=== PATIENT | female | born 1970 | race African-American/Black ===

== ENCOUNTER 2017-03-03 16:47 | Inpatient (IN) | payer BC ==
[2017-03-03 17:49] LABS: #Eosinphils 0.2 thou/uL (0.0-0.7); #Lymphocytes 1.9 thou/uL (1.20-3.40); #Monocytes 0.5 thou/uL (0.11-0.59); #Neutrophils 7.3 thou/uL (1.40-6.50); %Basophils 0.4 % (0.0-1.0); %Eosinophils 1.9 % (0.0-10.0); %Lymphocytes 19.1 % (21.0-51.0); %Monocytes 5.1 % (0.0-10.0); Hematocrit 29.5 % (36.0-47.0); Mean Platelet Volume 8.1 fL (7.4-10.4); Red Blood Cell (RBC) Count 4.32 mill/uL (4.20-5.40); White Blood Cell (WBC) Count 9.9 thou/uL (4.8-10.8)
[2017-03-03 18:03] LABS: Anisocytosis SLIGHT = 6-15 cells (100X) (0-5/hpf); Hypochromia SLIGHT = 6-15 cells (100X) (0-5/hpf); Microcytosis MODERATE=15-30 cells (100X) (0-5/hpf); Ovalocytes SLIGHT = 2-5 cells (100X) (0-1/hpf); Polychromasia SLIGHT = 2-3 cells (100X) (0-2/hpf); Target Cells SLIGHT = 2-5 cells (100X) (0-1/hpf)
[2017-03-03 18:11] LABS: ALT (SGPT) 8 U/L (8-55); AST (SGOT) 13 U/L (5-34); Alkaline Phosphatase 64 U/L (40-150); Anion Gap 14 mmol/L (10-20); BUN (Urea Nitrogen) 6 mg/dL (7.0-18.7); Bilirubin, Total 0.3 mg/dL (0.2-1.2); Calc. Creatinine Clearance 0 mL/min (70-130); Calcium 9.1 mg/dL (7.8-10.44); Carbon Dioxide 23 mmol/L (22-29); Chloride 105 mmol/L (98-107); Estimated GFR-MDRD 90; Globulin 4.5 g/dL (2.4-3.5)
[2017-03-03] MEDS ORDERED: methylPREDNISolone Sod Succ/PF 125 MG/2 ML VIAL ONE (19:25)
[2017-03-03] MEDS ORDERED: Water For Inject, Bacteriostat 30 ML ONE (19:28)
[2017-03-03] MEDS ORDERED: diphenhydrAMINE HCl 50 MG/ML 1 ML VIAL ONE (19:29)
--- NOTE | 2017-03-03 19:42 | CT ---
CT HEAD NONCONTRAST 03/03/17 HISTORY: Headache. COMPARISON: 10/05/16 FINDINGS: There is no evidence of acute intracranial hemorrhage or infarct. The ventricles appear normal in si ze, shape and position. There is no mass effect or shift of midline structures. Visualized paranasal sinuses remain well aerated. IMPRESSION: No acute intracranial abnormalities are demonstrated on noncontrast CT head. POS: [facility]
[2017-03-03] MEDS ORDERED: Acetaminophen 325 MG TAB PO PRN (20:55)
[2017-03-03] MEDS ORDERED: Ondansetron HCl/PF 4 MG/2 ML Vial IVP PRN (20:55)
[2017-03-03] MEDS ORDERED: HYDROcodone/Acetaminophen 5/325 mg Tablet PO PRN ×2 (20:55)
[2017-03-03] MEDS ORDERED: Ondansetron ODT 4 MG TAB SL PRN (20:55)
[2017-03-03] MEDS ORDERED: Ondansetron ODT 4 MG TAB PO PRN (21:11)
[2017-03-03] MEDS ORDERED: Ketorolac Tromethamine 30 MG/ML VIAL IVP SCH (21:15)
[2017-03-03] MEDS ORDERED: PROVENTIL INHALER 6.7 G (200 INHALATIONS) INH PRN (21:20)
[2017-03-03 21:41] VITALS: BMI 43.2
[2017-03-03 22:33] LABS: IRF 0.319 Ratio (0.163-0.362); Reticulocyte Count 1.3 % (0.5-1.5)
[2017-03-03 22:56] LABS: Anisocytosis SLIGHT = 6-15 cells (100X) (0-5/hpf); Hypochromia SLIGHT = 6-15 cells (100X) (0-5/hpf); Mean Platelet Volume 7.8 fL (7.4-10.4); Microcytosis MODERATE=15-30 cells (100X) (0-5/hpf); Neutrophil 89 % (42-75); Red Blood Cell (RBC) Count 4.09 mill/uL (4.20-5.40); White Blood Cell (WBC) Count 10.2 thou/uL (4.8-10.8)
[2017-03-03 23:02] LABS: Protein, Total 7.8 g/dL (6.0-8.3)
--- NOTE | 2017-03-04 00:57 | HP-2 ---
DATE OF ADMISSION: 03/03/2017 ADMITTING ATTENDING: David Amador MD RESIDENT: David Odom M.D. PRIMARY CARE PHYSICIAN: [facility]. CODE STATUS: FULL CODE. HISTORY OF PRESENT ILLNESS: The patient is a pleasant 46-year-old female with past medical history of hypertension, asthma, gastroparesis, anxiety, depression , and chronic anemia, who presents for evaluation of a severe headache that woke her up from sleep at approximately 04:30 this morning. The patient endorses taking naproxen at 10 this AM without any significant benefit. The patient did have a history of 1 episode of this approximately 2 years ago requiring hospitalization for 1 week. Patient states that she was diagnosed with a migraine and eventually sent home on the triptan medication. The patient describes headache as throbbing in nature and behind the eyes and in the forehead bilaterally with radiation around to the back of her head and into the neck. Positive photo and phonophobia as well as eye watering. The patient denies any rhinorrhea associated with this. The patient endorses blurry vision as well. The patient denies any history of a diagnosis of polymyalgia rheumatica. The patient denies any issues with gait or coordination imbalances. In the ER, the patient received 25 mg of IV Benadryl, 10 mg p.o. Reglan, and 125 mg of IV Solu-Medrol with 1 liter of normal saline bolus per headache protocol. PAST MEDICAL HISTORY: 1. Hypertension. 2. Hyperlipidemia. 3. Obesity. 4. Anemia. 5. Gastroparesis. 6. Anxiety depression. 7. Asthma. PAST SURGICAL HISTORY: Uterine ablation. FAMILY HISTORY: 1. Hypertension. 2. Heart disease. ALLERGIES: No known drug allergies. MEDICATIONS: 1. Albuterol inhaler. 2. 12.5 mg of HCTZ p.o daily. 3. 40 mg of omeprazole p.o. daily. 4. Cymbalta, unknown dosage. 5. Trazodone 150 mg p.o. at bedtime. 6. Gabapentin, unknown dosage. PHYSICAL EXAMINATION: VITAL SIGNS: T-max 98.8 degrees Fahrenheit, respiratory rate 18, heart rate 81 , blood pressure 131/64, O2 sat 96% on room air, weight current 117.93 kilograms. GENERAL: Alert and oriented x3. EYES: Unable to achieve adequate exam secondary to the patient with photophobia , but upon the previous examination, pupils appeared normal in dilation bilaterally and positive photophobia was noticed. No injection was identified. ENT: Mucous membranes moist. Oropharynx clear. CARDIOVASCULAR: Regular rate and rhythm, no murmurs or gallops, 2+ pedal pulses bilaterally LUNGS: Clear to auscultation bilaterally. RESPIRATORY: No rubs, rhonchi or wheezes. ABDOMEN: Nontender to palpation. Bowel sounds x4. No masses or distention. EXTREMITIES: No clubbing, no cyanosis, no edema. SKIN: No rash, no lesion. NEUROLOGIC: Cranial nerves II through XII intact bilaterally. No focal deficits. The patient is tender to palpation over the cephalad aspect of the temporal arteries bilaterally with some mild fullness noted in these areas. PSYCHIATRIC: Appropriate mood and affect. LABORATORY DATA: White blood cells 9.9, hemoglobin 9.4 with MCV of 68.3, hematocrit 29.5, platelets 647. CMP: Sodium 139, potassium 3.4, chloride 105, bicarbonate 23, BUN 6, creatinine 0.83, glucose 99, albumin 3.5, total protein 8.0, total bilirubin 0.3 , calcium 9.1, AST 13, ALT 8, alkaline phosphatase 64. ESR [address] head showing no acute intracranial process. ASSESSMENT AND PLAN: A 46-year-old female with: 1. Intractable migraine, rule out temporal arteritis. -- We will go ahead and admit to medical floor for further evaluation. Consult Neurology in the morning. Patient already received 125 mg of Solu-Medrol, which we will continue for treatment of suspected temporal arteritis. -- We will continue on with migraine protocol. We will go ahead and give IV Toradol upon arrival to the floor with next step being magnesium sulfate. This patient has already gotten Solu-Medrol. If this fails, we will likely attempt naproxen-sumatriptan combination, as patient states that this helped her during her previous episode of migraine approximately 2 years ago. 2. Nwwi-ol-ddiyixfr suspicion of GCA secondary to it being bilateral in nature with no acute vision loss and a chronic anemia. However, cannot rule out at this time. -- We will go ahead and work up for lupus as well as autoimmune panel including JOSI, rheumatoid factor, lupus anticoagulant, C3-C4 and anticardiolipin antibodies. -- We will go ahead and place order for color flow Dopplers for further evaluation of temporal arteritis, as this has been shown to be adjunct modality to aid in diagnosis. We will leave decision for possible biopsy up to Neurology after they are consulted and had a chance to evaluate the patient. 3. Macrocytic anemia. -- We will check iron studies as well as a retic count, peripheral smear for further evaluation. We will start iron pending studies. Differential diagnosis is iron deficiency versus anemia of chronic disease versus sickle cell or thalassemia. 4. Hypertension. -- We will continue on with home meds, appears to be well controlled on current regimen. 5. Hyperlipidemia. -- The patient not on any statin medication. We go ahead and check a fasting lipid panel and start statin if indicated. 6. Asthma. -- The patient is satting well on room air with lungs clear to auscultation bilaterally. We will continue on with Albuterol inhaler. 7. Anxiety, depression. -- We will continue on with home Cymbalta and trazodone. 8. Gastroparesis. -- Patient on no home medications if this becomes an issue, we will start p.o. Reglan for this. 9. Prophylaxis. -- Patient is ambulatory, we will place on sequential compression devices as she is at lower risk for thromboembolic event. -- Patient likely with some heart disease in the setting of hypertension, hyperlipidemia. We will place on heart healthy diet. -- Patient tolerating p.o. We will have patient's saline locked and start IV fluids if indicated at that time. Evaluation assessment and plan as discussed with Dr. David Amador, who agrees. Symptomatic medications will be provided. Agree with above. Seen and and examined and seay portions of the H&P repeated by myself. See my dictated H&P for any changes. BRIDGETD
[2017-03-04] MEDS ORDERED: HYDROcodone/Acetaminophen 5/325 mg Tablet PO SCH (05:10)
[2017-03-04 06:19] LABS: #Lymphocytes 0.8 thou/uL (1.20-3.40); #Monocytes 0.1 thou/uL (0.11-0.59); #Neutrophils 7.7 thou/uL (1.40-6.50); %Basophils 0.1 % (0.0-1.0); %Eosinophils 0.1 % (0.0-10.0); %Lymphocytes 9.4 % (21.0-51.0); Hematocrit 29.5 % (36.0-47.0); Mean Platelet Volume 7.8 fL (7.4-10.4); Red Blood Cell (RBC) Count 4.27 mill/uL (4.20-5.40); White Blood Cell (WBC) Count 8.6 thou/uL (4.8-10.8)
[2017-03-04 06:22] LABS: Anion Gap 13 mmol/L (10-20); BUN (Urea Nitrogen) 7 mg/dL (7.0-18.7); Calc. Creatinine Clearance 166 mL/min (70-130); Carbon Dioxide 22 mmol/L (22-29); Chloride 105 mmol/L (98-107); Estimated GFR-MDRD Greater than 90
[2017-03-04] MEDS ORDERED: Docusate 100 MG CAP PO PRN (06:48)
--- NOTE | 2017-03-04 06:53 | HP ---
DATE OF ADMISSION: 03/03/2017 CHIEF COMPLAINT: Headache. HISTORY OF PRESENT ILLNESS: This is a 46-year-old female with a past history of hypertension, depression, anxiety, and asthma who presents with 1 day of headache. It is described as bitemporal radiating across her forehead, throbbing with associated phonophobia, photophobia, nausea, and started out with what was described as prism of light going across her vision, which still she says persists and just progressively worsened to 10/10 pain. She is in the ED, where she was initially given medications with no improvement and because of concerning labs, she had a scan done and admitted to our service. She denies jaw claudication, chest pain, shortness of breath, fever, chills, or night sweats. REVIEW OF SYSTEMS: This is negative except as per HPI. Please see the resident 's note for full review of systems. PAST MEDICAL HISTORY: Positive for hypertension, obesity, asthma, history of headache, depression and anxiety. PAST SURGICAL HISTORY: Positive for endometrial ablation, and tubal ligation. FAMILY HISTORY: Positive for hypertension. ALLERGIES: None. MEDICATIONS: Significant for albuterol and hydrochlorothiazide. PHYSICAL EXAMINATION: VITAL SIGNS: Temperature 98.2, pulse 62, respirations 18, blood pressure 132/85 , O2 sat 100% on room air. CONSTITUTIONAL: The patient is in no acute distress, was in darkened room with glass over her eyes when quietly in bed. EYES: Pupils equal, round, reactive to light and accommodation. HEENT: Pinna normal, nares patent. Moist mucous membranes. Mildly tender of bilateral temporal areas. NECK: Trachea midline and mobile. CARDIOVASCULAR: Regular rate and rhythm without murmur, gallops, or rubs. Pulses equal on both upper extremities. RESPIRATORY: Clear to auscultation bilaterally without increased work of breathing. No wheezes noted. GASTROINTESTINAL: Bowel sounds positive. Nontender to palpation. GENITOURINARY: Deferred. MUSCULOSKELETAL: No congenital abnormalities or contractures, or malformations. SKIN: Without lesion or wound. NEUROLOGIC: Cranial nerves II through XII is intact and symmetric. Motor is 5/ 5 throughout. Sensation is intact to light touch throughout. PSYCHIATRIC: Alert and oriented x3. Mood and affect are appropriate for current medical issues. LABORATORY DATA: White count 9.9, hemoglobin 9.4, MCV 68.3, platelet count 647. ESR 99. CRP 4.37. Sodium 139, potassium 3.4, chloride 105, bicarbonate 23, BUN 6, creatinine 0.83, reassuring LFTs. Globulin 4.5. CT of the head demonstrates no acute intracranial abnormalities. ASSESSMENT AND PLAN: A 46-year-old female with: 1. Headache. By history, this sounds like a migraine; however, with her elevated ESR and complaint of temporal pain, we will consider diagnosis of temporal arteritis. Plan for consultation with Neurology in the morning. We will go ahead and send a limited autoimmune workup. Medication donald, we will give Toradol x1, [place] p.r.n., give a headache cocktail with Benadryl, methylprednisolone and Phenergan, and monitor for response. 2. Hypertension. We will continue home medication and monitor, assess cardiovascular risk later on. 3. Obesity. We will send an A1c and lipid panel. 4. Anxiety and depression. We will continue home duloxetine. 5. Anemia is normocytic, could be associated with temporal arteritis, but with MCV as well, we will send a hemoglobin electrophoresis. 6. Hypokalemia. We will replete and recheck in the morning. 7. Thrombocytosis, presumably reactive related to her anemia; however, with ESR aside, this could be secondary to an underlying cause, which we will investigate. 8. Asthma. We will continue MDI p.r.n. 9. Deep venous thrombosis prophylaxis, SCDs. 10. Gastrointestinal prophylaxis with diet. MTDD
[2017-03-04] MEDS: Ferrous Sulfate 325 MG TAB PO SCH ×2 (08:08→17:08)
[2017-03-04] MEDS: Hydrochlorothiazide 25 MG TAB PO SCH (08:11)
--- NOTE | 2017-03-04 09:51 | ULT ---
FOCUSED ARTERIAL DOPPLER ULTRASOUND F THE TEMPORAL REGIONS: DATE: 03/04/17. HISTORY: Possible temporal arteritis. TECHNIQUE: Sonographic assessment in bilateral temporal regions obtained with color flow and spectral analysis. FINDINGS: There are arterial waveforms documented within bilateral temporal regions which may signify patent t emporal arteries. However, they cannot be discretely visualized on suarez scale imaging and thus eval uation for wall thickening cannot be performed. In the expected location of the right temporal earline ry there is an arterial waveform documented with a peak systolic velocity of 25 cm/s and a resistive index of 0.78. In the expected location of the left temporal artery there is a peak systolic veloc ity of 18.7 cm/s and resistive index is 0.78. IMPRESSION: Arterial waveforms documented in the expected region of bilateral temporal arteries. The arteries c annot be discretely visualized. POS: [facility]
[2017-03-04 11:10] LABS: Bilirubin Negative (Negative); Blood, Urine Large (Negative); Glucose, Urine (Dipstick) Negative (Negative); Ketone, Urine Negative (Negative); Nitrite Negative (Negative); Protein, Urine (Dipstick) Negative (Neg-Trace); Urobilinogen 0.2 mg/dL (0.2-1.0)
[2017-03-04 11:15] LABS: Bacteria/HPF 1+ HPF (None Seen); Hyaline Casts/LPF 0-3 HYALINE CAST LPF (0-3 Hyaline); RBC/HPF 0-3 HPF (0-3); WBC/HPF 0-3 HPF (0-3)
[2017-03-04 11:16] LABS: Amphetamine Not Detected (NotDetected); Methadone Not Detected (NotDetected); Methamphetamine Not Detected (NotDetected)
[2017-03-04 12:20] LABS: DRVVT Ratio 0.8 Ratio (1.2 or Less); DRVVT Screen 28.7 SEC (20-50)
[2017-03-04] MEDS ORDERED: SUMAtriptan Succinate 50 MG TAB PO SCH (13:30)
[2017-03-04] MEDS ORDERED: Naproxen 500 MG TAB PO SCH (13:30)
--- NOTE | 2017-03-04 13:57 | PDOC.FM ---
- Subjective Subjective: 46 yo F hospital day 2 admitted for intactable headache and concern for temporal arteritis. She states her headache is the same in pain level as it was yesterday. Also reports one headache similar to this approximately 2 years ago, but this episode, while bad, is not as severe as the last. She reports that the previous headache was treated with sumatriptan with relief of symptoms. She describes the pain location as bitemporal, frontal and retroorbital. She complains of mild decrease in vision and has photo and phonophobia. Slightly nauseated, without emesis abdominal pain, diarrhea, constipation, fever, chills. - Objective Vital Signs & Weight: Vital Signs (12 hours) Temp Pulse Resp BP Pulse Ox 03/04/17 11:03 97.6 F 54 L 18 128/78 96 03/04/17 08:00 97.5 F L 51 L 18 120/71 97 03/04/17 04:00 97.5 F L 59 L 20 110/74 96 Weight Admit Weight 117.934 kg Weight 117.934 kg I&O: 03/03/17 03/04/17 03/05/17 06:59 06:59 06:59 Intake Total 500 Output Total 300 Balance 200 Result Diagrams: 03/04/17 05:14 03/04/17 05:14 Phys Exam - Physical Examination moderatley distressed, glasses over eyes HEENT: PERRLA, sclera anicteric ttp over bl temples Neck: no nodes, no JVD Respiratory: no wheezing, no rales, no rhonchi, clear to auscultation bilateral Cardiovascular: RRR, no significant murmur, no rub, gallop Gastrointestinal: soft, non-tender, no distention, positive bowel sounds Musculoskeletal: no edema, pulses present Neurological: non-focal cn II-XII intact, strength 5/5 all extremities Dx/Plan (1) Intractable headache Code(s): R51 - HEADACHE Status: Acute (2) Anemia, iron deficiency Code(s): D50.9 - IRON DEFICIENCY ANEMIA, UNSPECIFIED Status: Acute (3) Elevated C-reactive protein (CRP) Code(s): R79.82 - ELEVATED C-REACTIVE PROTEIN (CRP) Status: Acute (4) Hypertension Code(s): I10 - ESSENTIAL (PRIMARY) HYPERTENSION Status: Acute - Plan Plan: ttp bl temporal arteries and elevated esr and crp sumatriptan and naprosyn given for headache, monitor pain neurology consulted appreciate recs iron deficiency anemia, harry, ttg ab and total immunoglobulin pending iron 325 bid WM vit C 500mg BID, colace trini 100bid h/o of gastritis/esophagitis fobt ordered thrombocytosis, chronic possibly 2/2 anemia, will trend doppler study of bilateral temporal arteries was normal
[2017-03-04] MEDS ORDERED: Calcium Carbonate 500 MG ChewTAB PO PRN (14:32)
[2017-03-04] MEDS ORDERED: Promethazine HCl 25 MG/ML VIAL SLOW IVP PRN (19:50)
[2017-03-04] MEDS ORDERED: predniSONE 20 MG TAB PO SCH (20:00)
[2017-03-04] MEDS: Ascorbic Acid 500 mg Chewable Tablet PO SCH (20:08)
[2017-03-04] MEDS: traZODone HCl 150 MG TAB PO SCH (20:08)
[2017-03-04] MEDS: Docusate 100 MG CAP PO SCH (20:08)
--- NOTE | 2017-03-04 21:24 | ADD-PRG ---
DATE OF SERVICE: 03/04/2017 ADDENDUM Please add it as an addendum to the note of Dr. David Maria. Ms. Morrison is a 46-year-old black female patient admitted with bilateral throbbing headache seeming ly consistent with her usual migraine which however, has not been a problem for about 2 years. She also was noted to have an extremely high sedimentation rate and CRP with some tenderness over both t emporal arteries suggesting temporal arteritis. She has been admitted for pain control as well as N eurology consultation. She is also noted to have a microcytic anemia with low ferritin consistent w ith iron deficiency. She had ablation for abnormal uterine bleeding in the past and has had no vagi nal bleeding since November of this year. She had previously had an EGD and colonoscopy approximately 1 year ago with evidently no significant findings other than erosive esophagitis. She does admit to having postprandial abdominal discomfort as well as 1 week ago, vomiting up coffee-ground emesis. W e will therefore consult GI or at least touch base to them to see if they want to proceed with EGD. In the interim, we will begin to replenish her iron. In the past, she states she has been intolera nt of p.o. iron and that it caused throat and chest pain. We will reattempt this it if unsuccessful . She will be a candidate for iron infusion. In the event, we need to get her hemoglobin back to 1 2-13 and her ferritin up to at least 40-50.
--- NOTE | 2017-03-05 01:35 | CON ---
DATE OF CONSULTATION: 03/04/2017 CONSULTING PHYSICIAN: Hospitalist Service. IMPRESSION: Symptoms are most suggestive of migraine. Given her elevated sed rate, further evaluat ion for temporal arteritis would be a consideration although her age is atypical. PLAN: 1. Recheck a sed rate and CRP. 2. Prednisone 60 mg orally now. 3. Reglan and morphine IV for pain. 4. Consider need for referral to ENT for temporal artery biopsy. HISTORY OF PRESENT ILLNESS: Ms. Morrison is a 46-year-old black female with a past history of asthma and episodic headaches. Yesterday, she developed a bifrontal headache that was both pressure and t hrobbing in quality. There is no significant cranial tenderness associated with it. She also compl ains of blurred vision, nausea, light sensitivity, sound sensitivity and dizziness. She was given a migraine protocol, but did not respond. She was admitted for further evaluation. She had a CT sca n of the brain, which was normal. Her white blood cell count was 9.0, hemoglobin of 9. Her sed rat e was 99. PAST MEDICAL HISTORY: As listed above. ALLERGIES: None reported. SOCIAL HISTORY: Unremarkable. FAMILY HISTORY: Unremarkable. REVIEW OF SYSTEMS: No lateralized weakness or numbness. No confusion or seizures. No fevers, chil ls or sweats. PHYSICAL EXAMINATION: GENERAL: She is an obese middle-aged woman, lying in bed with sunglasses on and lights dimmed. HEENT: No significant cranial tenderness. NEUROLOGIC: She is alert and appropriate. Her speech is fluent and clear. Her exam is nonfocal. No abnormal movements were noted and gait was not tested. SUMMARY: This middle-aged woman with complaints of a headache more consistent with a migraine. We can start some prednisone and try a different tack on pain relief. Hopefully, this will break the c ycle and she can be discharged.
[2017-03-05 05:01] LABS: #Lymphocytes 1.1 thou/uL (1.20-3.40); #Monocytes 0.1 thou/uL (0.11-0.59); #Neutrophils 13.2 thou/uL (1.40-6.50); %Basophils 0.1 % (0.0-1.0); %Lymphocytes 7.4 % (21.0-51.0); Hematocrit 29.2 % (36.0-47.0); Mean Platelet Volume 8.1 fL (7.4-10.4); Red Blood Cell (RBC) Count 4.27 mill/uL (4.20-5.40); White Blood Cell (WBC) Count 14.4 thou/uL (4.8-10.8)
[2017-03-05 05:17] LABS: Anion Gap 14 mmol/L (10-20); BUN (Urea Nitrogen) 9 mg/dL (7.0-18.7); Calc. Creatinine Clearance 164 mL/min (70-130); Calcium 9.4 mg/dL (7.8-10.44); Carbon Dioxide 19 mmol/L (22-29); Chloride 105 mmol/L (98-107); Estimated GFR-MDRD Greater than 90
[2017-03-05] MEDS: Ferrous Sulfate 325 MG TAB PO SCH ×2 (09:24→17:07)
[2017-03-05] MEDS: Ibuprofen 800 MG TAB PO PRN (09:24)
[2017-03-05] MEDS: Ascorbic Acid 500 mg Chewable Tablet PO SCH ×2 (09:24→22:06)
[2017-03-05] MEDS: Docusate 100 MG CAP PO SCH ×2 (09:24→22:06)
[2017-03-05] MEDS: Hydrochlorothiazide 25 MG TAB PO SCH (09:24)
[2017-03-05] MEDS ORDERED: predniSONE 20 MG TAB PO SCH (14:00)
--- NOTE | 2017-03-05 14:03 | PDOC.FM ---
- Subjective Subjective: 46 yo F hospital day 2. Pt reports her pain is mildly improved with the sumatriptan and aleve given yesterday. She continues to have her sunglasses on, but has her eyes opened today. She reports decreased photophobia, phonophobia. She is persistently ttp bitemporally. She also reports she is having pain from the iron medication she is getting. She was seen by neurology yesterday and they switched migraine pain control to phenergan and morphine given together q4h. Additionally, she received 60mg prednisone. Denies NVD. Reports her last BM was approximately 4 days ago. - Objective Vital Signs & Weight: Vital Signs (12 hours) Temp Pulse Resp BP Pulse Ox 03/05/17 08:00 97.9 F 64 22 H 126/76 96 03/05/17 04:00 97.9 F 68 18 134/83 95 Weight Admit Weight 117.934 kg Weight 117.934 kg I&O: 03/04/17 03/05/17 03/06/17 06:59 06:59 06:59 Intake Total 500 420 720 Output Total 300 2 Balance 200 420 718 Result Diagrams: 03/05/17 04:31 03/05/17 04:31 Phys Exam - Physical Examination Constitutional: NAD HEENT: PERRLA, moist MMs, sclera anicteric ttp bilateral temples Respiratory: no wheezing, no rales, no rhonchi, clear to auscultation bilateral Cardiovascular: RRR, no significant murmur, no rub Gastrointestinal: soft, non-tender, no distention, positive bowel sounds Musculoskeletal: no edema Neurological: non-focal, normal sensation, moves all 4 limbs CN II-XII intact Dx/Plan (1) Intractable headache Code(s): R51 - HEADACHE Status: Acute (2) Anemia, iron deficiency Code(s): D50.9 - IRON DEFICIENCY ANEMIA, UNSPECIFIED Status: Acute (3) Elevated C-reactive protein (CRP) Code(s): R79.82 - ELEVATED C-REACTIVE PROTEIN (CRP) Status: Acute (4) Hypertension Code(s): I10 - ESSENTIAL (PRIMARY) HYPERTENSION Status: Acute - Plan Plan: pt had a drop in the CRP, but the ESR had a slight increase we will continue prednisone 60mg QD X 5 days for her iron deficiency anemia the pt reported h/o coffee ground emesis recently , GI has been consulted and we are awaiting recs ttg, and Hgb electrophoresis are still pending thrombocytosis 2/2 iron deficiency anemia vs bleed vs autonomous thrombocytosis : we will continue iron supplementation and await GI recs miralax for constipation fobt pending Per Nuerology recs, phenergan and morphine for pain control continue to monitor clinically
--- NOTE | 2017-03-05 14:09 | ADD-PRG ---
This is an addendum to the note of Dr. David Maria. Ms. Morrison is still having bilateral headache, although it has improved slightly. It did not impro ve to the degree that I think temporal arteritis would give her high dosages of prednisone. We are still in the midst of working up her anemia and will make a decision regarding EGD either as an inpa tient or outpatient. We should continue her on high dose prednisone until we can arrange temporal a rtery biopsy with ENT.
[2017-03-05] MEDS: traZODone HCl 150 MG TAB PO SCH (22:06)
[2017-03-06 05:58] LABS: Anion Gap 11 mmol/L (10-20); BUN (Urea Nitrogen) 12 mg/dL (7.0-18.7); Calc. Creatinine Clearance 164 mL/min (70-130); Carbon Dioxide 27 mmol/L (22-29); Chloride 103 mmol/L (98-107); Estimated GFR-MDRD Greater than 90
[2017-03-06 06:01] LABS: Band 2 % (5-11); Hematocrit 27.9 % (36.0-47.0); Neutrophil 93 % (42-75); Red Blood Cell (RBC) Count 4.05 mill/uL (4.20-5.40)
[2017-03-06] MEDS: Docusate 100 MG CAP PO SCH ×2 (07:48→20:37)
[2017-03-06] MEDS: Ascorbic Acid 500 mg Chewable Tablet PO SCH ×2 (07:48→20:37)
[2017-03-06] MEDS: Hydrochlorothiazide 25 MG TAB PO SCH (07:49)
[2017-03-06] MEDS: Ferrous Sulfate 325 MG TAB PO SCH (07:49)
[2017-03-06] MEDS: predniSONE 20 MG TAB PO SCH (07:50)
--- NOTE | 2017-03-06 10:01 | PDOC.FM ---
- Subjective Subjective: pt had no acute events overnight. She continues to have pain, but states it is slightly improved. She reports she has yet to have a BM, but does have a history of gastroparesis. Pt also reports inability to take oral iron supplementation 2/2 side effects. Denies excessive tearing. Reports some persistent blurry vision. Photophobia and phonophobia have improved along with bitemporal tenderness to palpation. - Objective Vital Signs & Weight: Vital Signs (12 hours) Temp Pulse Resp BP Pulse Ox 03/06/17 08:00 98.2 F 61 18 116/73 95 Weight Admit Weight 117.934 kg Weight 117.934 kg I&O: 03/05/17 03/06/17 03/07/17 06:59 06:59 06:59 Intake Total 420 1300 Output Total 2 Balance 420 1298 Result Diagrams: 03/06/17 04:51 03/06/17 04:51 <David Maria - Last Filed: 03/06/17 19:01> - Objective Vital Signs & Weight: Weight Admit Weight 260 lb Weight 260 lb I&O: 03/06/17 03/07/17 03/08/17 06:59 06:59 06:59 Intake Total 1300 240 Output Total 2 Balance 1298 240 Result Diagrams: 03/07/17 04:10 03/07/17 04:10 <Lencho Ye - Last Filed: 03/07/17 21:56> Phys Exam - Physical Examination Constitutional: NAD HEENT: PERRLA, moist MMs, sclera anicteric, oral pharynx no lesions Respiratory: no wheezing, no rales, no rhonchi, clear to auscultation bilateral Cardiovascular: RRR, no significant murmur, no rub Gastrointestinal: soft, non-tender, no distention, positive bowel sounds Musculoskeletal: no edema, pulses present Neurological: non-focal, normal sensation cn II-XII intact <David Maria - Last Filed: 03/06/17 19:01> Dx/Plan (1) Intractable headache Code(s): R51 - HEADACHE Status: Acute (2) Anemia, iron deficiency Code(s): D50.9 - IRON DEFICIENCY ANEMIA, UNSPECIFIED Status: Acute (3) Elevated C-reactive protein (CRP) Code(s): R79.82 - ELEVATED C-REACTIVE PROTEIN (CRP) Status: Acute (4) Hypertension Code(s): I10 - ESSENTIAL (PRIMARY) HYPERTENSION Status: Acute - Plan Plan: we will continue prednisone 60 qd for concerns of temporal arteritis GI has recommended no endoscopic evaluation at this time for anemia will transfuse iron 2/2 severe deficiency anemia transition IV pain medications for headache to PO medications sumatriptan and naprosyn clinically pt continues to improve and will likely be stable for dc tomorrow, pending continued improvement of her symptoms recheck CBC consider BB for migraine prophylaxis rf, harry were negative ttg pending, Hgb electrophoresis pending persistent thrombocytosis likely 2/2 severe iron deficiency anemia <David Maria - Last Filed: 03/06/17 19:01> Attending Addendum - Attending Addendum I personally evaluated the patient and discussed the management with [Candace ] I agree with the History, Examination, Assessment and Plan documented above with any addition or exceptions noted below. pt with iron deficient anemia. choudhury with high sed rate. choudhury is getting better <Lencho Ye - Last Filed: 03/07/17 21:56>
--- NOTE | 2017-03-06 14:14 | PRG ---
DATE OF SERVICE: 03/06/2017 SUBJECTIVE: Ms. Morrison states that she is about the same in terms of headache. She has had no vom iting. Nurses note no bleeding. OBJECTIVE: VITAL SIGNS: Temperature is 98.2, pulse 61, blood pressure 116/73. GENERAL: She is wearing dark sunglasses. ABDOMEN: Nontender, a little overweight. LABORATORY STUDIES: White count 22, hemoglobin 9, platelet count 589. Basic metabolic profile norm al. ASSESSMENT: 1. With regard to her iron deficiency anemia as noted on yesterday's consultation, she had a workup last year. She shows no overt bleeding. Hemoglobin electrophoresis is pending. Tissue transgluta minase is pending. 2. With regard to leukocytosis, likely related to steroids that she is on for possible temporal art eritis. RECOMMENDATIONS: At this time, no plans to repeat endoscopy. We will follow from a distance.
[2017-03-06] MEDS ORDERED: Naproxen 500 MG TAB PO PRN (15:00)
--- NOTE | 2017-03-06 15:06 | CON ---
REASON FOR CONSULTATION: Chronic microcytic anemia. HISTORY OF PRESENT ILLNESS: Ms. Morrison is a 46-year-old female who was admitted to the hospital on 03/03/2017 for headache associated with phonophobia, photophobia, nausea, and visual changes. She was admitted to the hospital for further evaluation, has had a negative CAT scan of the brain, has b ronan seen by Neurology, who has recommended consideration of a temporal artery biopsy. She has alrea dy had that to rule out temporal arteritis. She has a hemoglobin of 9 and MCV of 68. I was asked t o see her with regards to this. On reviewing the patient's records, her anemia has been longstandin g. She denies any overt melena. She said sometimes in the past, she would vomit with her reflux. She occasionally has coffee-ground emesis. She does not remember exactly when that occurred. She d enies any melena. Her hemoglobin has remained essentially the same since admission today being 9.0 with MCV of 68. On reviewing her old records, she has had an extensive workup for iron deficiency a nemia last year with Dr. Lencho Pindea. At that time, she underwent upper and lower endoscopy at this hospital. The old records here indicate that she had a normal colonoscopy except for small internal hemorrhoids and had erosive esophagitis at the GE junction and a 5 cm hiatal hernia on EGD, this wa s performed in October of last year. She was placed on b.i.d. omeprazole on her last followup in the [facility] last fall. She was having no problems. Presently, she reports she does have some reflux at ti mes but does pretty well with the omeprazole. She also has a known history of delayed gastric empty ing as per gastric emptying scan in 09/2016. As far as her anemia goes, it dates back in the medical records as far as 1993; I have never seen a hemoglobin of more than 11 in this patient. Her MCV has been low as well throughout the entire time . She has had documented low irons in the past. While she is here, I will check a hemoglobin elect rophoresis to evaluate for possible thalassemia, which is not unreasonable. PAST MEDICAL HISTORY: 1. Chronic microcytic anemia with previous endoscopic workup just last year as above. 2. History of asthma and episodic headaches. 3. History of reflux esophagitis by gastric emptying on a gastroparesis study last year. 4. Hypertension, dyslipidemia, obesity. 5. Depression and anxiety. PAST SURGICAL HISTORY: Uterine ablation for menorrhagia, endoscopy as noted above, tubal ligation. SOCIAL HISTORY: The patient denies smoking. She does not drink either. ALLERGIES: None. MEDICATIONS: At home, Risperdal, omeprazole, Cymbalta, trazodone, Ventolin inhaler, Claritin, ibupr ofen 600 mg t.i.d. p.r.n., hydrochlorothiazide. Active medications, Proventil, vitamin C, Tums, Col mark, iron, hydrochlorothiazide, Motrin, morphine, Zofran, Protonix 40 mg p.o. daily, prednisone 60 m g daily, Phenergan p.r.n., and Desyrel. LABORATORY STUDIES: White count 14, it was 10 on admission; hemoglobin 9, it was 9.2 on admission; MCV 68; platelet count 590. Basic metabolic profile normal. Iron was 13 on 03/03/2017, C-reaction protein 4. ASSESSMENT: Anemia, chronic. She has had workup in the past with upper and lower endoscopies revealing esophagi tis in the lower esophagus and hiatal hernia, otherwise normal colonoscopy. This is just last year with Dr. Pineda. She has also had an endometrial ablation. I have never seen her hemoglobin since 19 94 greater than 11. She has always been microcytic. I think getting a hemoglobin electrophoresis i s reasonable to rule out the component of thalassemia. Celiac disease unlikely, but that is reasona ble to rule out as well. I would stop her NSAIDs, probably not helpful. If she cannot take oral iron, a trial of IV suppleme ntation in the outpatient setting would be reasonable. At this time, I see no need for further GI t ract evaluation. She has not responded to intravenous iron and withholding of NSAIDs. If any other workup is negative, we can always consider capsule endoscopy in the outpatient setting.
[2017-03-06] MEDS ORDERED: Acetaminophen 500 MG TAB PO SCH (15:45)
[2017-03-06] MEDS ORDERED: Iron Sucrose Complex 500 MG in Sodium Chloride 0.9% 250 ML 250 ML IVPB SCH (15:45)
[2017-03-06] MEDS: Ferrous Gluconate 324 MG TAB PO SCH (16:45)
[2017-03-06] MEDS: traZODone HCl 150 MG TAB PO SCH (20:37)
[2017-03-06] MEDS ORDERED: SUMAtriptan Succinate 50 MG TAB PO PRN (21:00)
[2017-03-07 04:49] LABS: #Eosinphils 0.1 thou/uL (0.0-0.7); #Lymphocytes 2.7 thou/uL (1.20-3.40); #Monocytes 0.7 thou/uL (0.11-0.59); #Neutrophils 13.5 thou/uL (1.40-6.50); %Basophils 0.1 % (0.0-1.0); %Eosinophils 0.5 % (0.0-10.0); %Lymphocytes 15.6 % (21.0-51.0); Hematocrit 28.3 % (36.0-47.0); Mean Platelet Volume 7.7 fL (7.4-10.4); Red Blood Cell (RBC) Count 4.07 mill/uL (4.20-5.40); White Blood Cell (WBC) Count 16.9 thou/uL (4.8-10.8)
[2017-03-07 05:10] LABS: Anion Gap 11 mmol/L (10-20); BUN (Urea Nitrogen) 12 mg/dL (7.0-18.7); Calc. Creatinine Clearance 160 mL/min (70-130); Carbon Dioxide 28 mmol/L (22-29); Chloride 101 mmol/L (98-107); Estimated GFR-MDRD Greater than 90
--- NOTE | 2017-03-07 05:50 | PDOC.FM ---
- Subjective Subjective: pt states her pain is better today and is able to keep her eyes open throughout the exam. She states her pain is well controlled and her vision is improved. - Objective Vital Signs & Weight: Vital Signs (12 hours) Temp Pulse Resp BP Pulse Ox 03/06/17 20:00 97.7 F 62 16 107/72 92 L Weight Admit Weight 117.934 kg Weight 117.934 kg I&O: 03/05/17 03/06/17 03/07/17 06:59 06:59 06:59 Intake Total 420 1300 Output Total 2 Balance 420 1298 Result Diagrams: 03/07/17 04:10 03/07/17 04:10 <David Maria - Last Filed: 03/07/17 07:33> - Objective Vital Signs & Weight: Vital Signs (12 hours) Temp Pulse Resp BP Pulse Ox 03/07/17 08:52 97.6 F 51 L 20 126/83 94 L 03/07/17 08:00 97.7 F 62 16 98 Weight Admit Weight 260 lb Weight 260 lb I&O: 03/06/17 03/07/17 03/08/17 06:59 06:59 06:59 Intake Total 1300 240 Output Total 2 Balance 1298 240 Result Diagrams: 03/07/17 04:10 03/07/17 04:10 <Jed Parker - Last Filed: 03/07/17 11:19> Phys Exam - Physical Examination Constitutional: NAD HEENT: PERRLA, moist MMs Respiratory: no wheezing, no rales, no rhonchi, clear to auscultation bilateral Cardiovascular: RRR, no rub, gallop 1-2 misty, previously diagnosed Gastrointestinal: soft, non-tender, no distention, positive bowel sounds Musculoskeletal: no edema, pulses present Neurological: non-focal cn ii-xii intact <David Maria - Last Filed: 03/07/17 07:33> Dx/Plan (1) Intractable headache Code(s): R51 - HEADACHE Status: Acute (2) Anemia, iron deficiency Code(s): D50.9 - IRON DEFICIENCY ANEMIA, UNSPECIFIED Status: Acute (3) Elevated C-reactive protein (CRP) Code(s): R79.82 - ELEVATED C-REACTIVE PROTEIN (CRP) Status: Acute (4) Hypertension Code(s): I10 - ESSENTIAL (PRIMARY) HYPERTENSION Status: Acute - Plan Plan: we will continue prednisone 60 qd for concerns of temporal arteritis 500 mg iron transfusion yesterday, will discharge today and recommend op f/u for iron deficiency anemia transition IV pain medications for headache to PO medications sumatriptan and naprosyn clinically pt continues to improve and is be stable for dc Hgb 8.9 consider BB for migraine prophylaxis rf, harry, dsDNA were negative ttg pending, Hgb electrophoresis pending persistent thrombocytosis likely 2/2 severe iron deficiency anemia hypokalemia, replace check mag <David Maria - Last Filed: 03/07/17 07:33> - Plan Plan: I personally evaluated the patient and discussed the management with resident[] I agree with the History, Examination, Assessment and Plan documented above with any addition or exceptions noted below. <Jed Parker - Last Filed: 03/07/17 11:19>
[2017-03-07] MEDS ORDERED: Potassium Chloride 20 MEQ TAB PO SCH (07:45)
[2017-03-07] MEDS: Ferrous Gluconate 324 MG TAB PO SCH (07:47)
[2017-03-07] MEDS: Hydrochlorothiazide 25 MG TAB PO SCH (07:48)
[2017-03-07] MEDS: Docusate 100 MG CAP PO SCH (07:48)
[2017-03-07] MEDS: predniSONE 20 MG TAB PO SCH (07:48)
[2017-03-07] MEDS: Ascorbic Acid 500 mg Chewable Tablet PO SCH (07:49)
[2017-03-07] MEDS: Ibuprofen 800 MG TAB PO PRN (07:51)
[2017-03-07 08:53] VITALS: BP 126/83; TEMP 97.6
[2017-03-08 16:13] LABS: Hemoglobin F 0 % (0.0-2.0); Interpretation Note: (.)
--- NOTE | 2017-03-09 08:20 | DIS-2 ---
DATE OF ADMISSION: 03/03/2017 DATE OF DISCHARGE: 03/07/2017 RESIDENT PHYSICIAN: Dr. David Maria ADMITTING ATTENDING: Dr. David Amador DISCHARGE ATTENDING: Dr. Parker [facility] [place] Neurology, Dr. Antonio Lewis PROCEDURES: 1. Brain CT performed on 03/03/2017 showed no acute intracranial abnormalities. 2. Sonographic assessment of bilateral temporal arteries performed on 03/04/2017 that showed arteri al waveforms in the region of the bilateral temporal arteries. The arteries cannot be discretely vi sualized. PRIMARY DIAGNOSIS: Migraine. SECONDARY DIAGNOSES: 1. Temporal arteritis. 2. Iron deficiency anemia. 3. Intractable headache. 4. Hypertension. 5. Elevated ESR. 6. Elevated CRP. DISCHARGE MEDICATIONS: 1. Ferrous gluconate 324 mg p.o. b.i.d. with meals. 2. Naprosyn 500 mg p.o. t.i.d. p.r.n. 3. Sumatriptan 50 mg p.o. t.i.d. p.r.n. 4. Prednisone 60 mg p.o. q.a.m. 5. Ventolin inhaler 2 puffs q.4 h. p.r.n. 6. Risperidone 1 mg p.o. daily. 7. Trazodone 150 mg p.o. at bedtime. DISCONTINUED MEDICATIONS: None. HISTORY OF PRESENT ILLNESS AND HOSPITAL COURSE: The patient is a 46-year-old female who originally presented with intractable headache with no focal neurologic deficit. Initial brain CT performed i n the ED was negative for any acute intracranial process. She was admitted to the floor. On admiss ion, she reported vision changes and was tender to palpation over the bitemporal regions. Original ESR was 99. Original CRP 4.06. The patient was given 125 mg of methylprednisolone IV in the ED. S he was given sumatriptan and naproxen for pain and Neurology was subsequently consulted. The pain w as adequately controlled with Reglan and morphine. Her pain continued to improve throughout her sta y in the hospital. She was given 60 mg p.o. daily on the subsequent days from her initial ER presen tation. There was concern for temporal arteritis and the patient was instructed to follow up upon d ischarge with ear, nose and throat doctor who would perform a temporal artery biopsy in his office t he following day from discharge. Throughout the patient's hospital stay cranial nerves II-XII remained intact. Pupils are equal, rou nd and reactive to light with accommodation. However, the patient did have some excessive tearing o n initial presentation which subsequently resolved. She was discharged home with instructions to co mplete a 5-day course of steroids and use sumatriptan and naproxen as needed for her headache. It should be noted that subsequent finding on the patient's initial presentation was anemia, shown t o be microcytic with a MCV of 69.6. Patient's hemoglobin was 8.9. The iron studies revealed an iro n level of 15. Hemoglobin electrophoresis showed normal adult hemoglobin. The patient had a reticu locyte count of 1.3. The patient's platelets were persistently around 600, likely secondary to lpn cma kristopher anemia, although other sources have not been excluded. The patient's initial CRP trended down f rom 4 to 1.85 on discharge. Rheumatoid factor was negative. JOSI screen was negative. Double stran ded DNA antibody was negative. Tissue transglutaminase was negative. DISPOSITION: The patient left the hospital in stable condition. Vision was intact and the patient was neurologically intact. 1. Diet: Heart healthy. 2. Activity: As tolerated. 3. Followup: Follow up with Dr. Mccartney, ear, nose and throat specialist the day following discharg e. Follow up with primary care physician in 1-2 weeks.
== END 2017-03-07 12:48 | disposition home or self-care (01) | DRG 103 ==
LOC: ERS 16:47 → T4-B 19:30
PROVIDERS: ADMIT Emergency Medicine; ATTEND Emergency Medicine
DX: G43.909 Migraine, unspecified, not intractable, without status migrainosus (principal); M31.6 Other giant cell arteritis; Z68.41 Body mass index [BMI] 40.0-44.9, adult; I10 Essential (primary) hypertension; E87.6 Hypokalemia; J45.909 Unspecified asthma, uncomplicated; E66.9 Obesity, unspecified; D47.3 Essential (hemorrhagic) thrombocythemia; E78.5 Hyperlipidemia, unspecified; K31.84 Gastroparesis; D50.9 Iron deficiency anemia, unspecified; K59.00 Constipation, unspecified; D72.829 Elevated white blood cell count, unspecified; F32.9 Major depressive disorder, single episode, unspecified; R79.82 Elevated C-reactive protein (CRP); F41.9 Anxiety disorder, unspecified; Z82.49 Family history of ischemic heart disease and other diseases of the circulatory system; T38.0X5A Adverse effect of glucocorticoids and synthetic analogues, initial encounter
CPT/HCPCS: 36415; 70450; 80048; 80053; 80061; 80306; 81001; 82570; 82728; 83021; 83516; 83540; 83550; 83735; 84155; 84466; 85025; 85046; 85060; 85613; 85652; 86038; 86140; 86147; 86160; 86225; 86430; 93976; 96361; 96374; 96375; A4216; J1200; J1756; J1885; J2270; J2550; J2930; J7050; J7506

== ENCOUNTER 2017-03-17 05:53 | Day surgery (SDC) | payer BC ==
[2017-03-16 11:55] VITALS: BMI 42.4
[2017-03-17] MEDS ORDERED: Fentanyl 100 MCG/2 ML VIAL ONE ×2 (08:08→09:15)
[2017-03-17] MEDS ORDERED: Lidocaine 1% w/Epinephrine 1:200K 30 ML VIAL ONE (08:16)
[2017-03-17] MEDS ORDERED: Propofol 200 MG/20 ML VIAL ONE (08:25)
[2017-03-17] MEDS ORDERED: Metoclopramide HCl 10 MG/2 ML VIAL ONE (08:25)
[2017-03-17] MEDS ORDERED: Lidocaine 2% PF 10 ML AMP (For Epidural Use) ONE (08:25)
[2017-03-17] MEDS ORDERED: Ketorolac Tromethamine 30 MG/ML VIAL ONE (08:25)
[2017-03-17] MEDS ORDERED: Ondansetron HCl/PF 4 MG/2 ML Vial ONE (08:25)
[2017-03-17] MEDS ORDERED: Bacitracin Zinc Ointment 30 gm TUBE ONE (08:42)
[2017-03-17] MEDS ORDERED: Hydrocodone-Acetamin 15 ML UDCUP ONE (10:19)
--- NOTE | 2017-03-17 16:11 | OP ---
PREOPERATIVE DIAGNOSES: 1. Temporal arteritis, bilateral. 2. Headache. POSTOPERATIVE DIAGNOSES: 1. Temporal arteritis, bilateral. 2. Headache. PROCEDURE: Bilateral temporal artery biopsy. SURGEON: Warren Mccartney M.D. ESTIMATED BLOOD LOSS: Less than 5 mL. COMPLICATIONS: None. ANESTHESIA: LMA. DESCRIPTION OF THE PROCEDURE: The patient taken to the operating room. LMA anesthesia was obtained by the Anesthesia staff. The patient was then prepped and draped for standard surgical procedure. The temporal artery was identified bilaterally with palpation and auscultation. It was marked and the area was prepped and draped in standard surgical fashion. A small incision was made with a 15 b lade overlying this area and a blunt dissection was carried out, a 2 cm piece of temporal artery was harvested bilaterally and the wound was closed using Monocryl stitches and subcuticular layer and s taples on the skin. The patient tolerated the procedure well.
--- NOTE | 2017-03-18 09:06 | EKG ---
Test Reason : PREOP Blood Pressure : / mmHG Vent. Rate : 074 BPM Atrial Rate : 074 BPM P-R Int : 136 ms QRS Dur : 088 ms QT Int : 412 ms P-R-T Axes : 047 006 007 degrees QTc Int : 457 ms Normal sinus rhythm Normal ECG When compared with ECG of 26-MAY-2016 18:17, Nonspecific T wave abnormality now evident in Anterior leads Confirmed by CONNOR SANFORD ([id number]) on 03/18/2017 9:05:40 AM Referred By: TIFFANIE Confirmed By:CONNOR SANFORD
== END 2017-03-17 11:00 | disposition home or self-care (01) ==
LOC: SDC 05:53
PROVIDERS: ATTEND Otolaryngology Plastic Surgery within the Head & Neck
PROC: 03BT0ZX Excision of Left Temporal Artery, Open Approach, Diagnostic (ICD-10-PCS; principal; 2017-03-17)
PROC: 03BS0ZX Excision of Right Temporal Artery, Open Approach, Diagnostic (ICD-10-PCS; principal; 2017-03-17)
DX: M31.6 Other giant cell arteritis (principal); I10 Essential (primary) hypertension; J45.909 Unspecified asthma, uncomplicated; K21.9 Gastro-esophageal reflux disease without esophagitis; F32.9 Major depressive disorder, single episode, unspecified; E11.9 Type 2 diabetes mellitus without complications; G43.909 Migraine, unspecified, not intractable, without status migrainosus; Z79.899 Other long term (current) drug therapy; Z98.51 Tubal ligation status; Z98.890 Other specified postprocedural states; Z82.49 Family history of ischemic heart disease and other diseases of the circulatory system
CPT/HCPCS: 88305; 88313; 93005; 93010; 96374; J0131; J1885; J2001; J2405; J2704; J2765; J3010

== ENCOUNTER 2017-04-02 18:03 | Emergency (ER) | payer BC ==
--- NOTE | 2017-04-02 18:28 | RAD ---
RADIOGRAPH CHEST 1 VIEW: 04/02/17 HISTORY: 46-year-old female with acute chest pain. FINDINGS: There are no air space densities, pulmonary edema, pneumothorax, or cardiomegaly. The lateral costo phrenic angles are sharp. IMPRESSION: No acute cardiopulmonary findings. stephen [] POS: [facility]
[2017-04-02 18:46] LABS: #Eosinphils 0.2 thou/uL (0.0-0.7); #Lymphocytes 2.4 thou/uL (1.20-3.40); #Monocytes 0.6 thou/uL (0.11-0.59); #Neutrophils 10.3 thou/uL (1.40-6.50); %Basophils 0.1 % (0.0-1.0); %Eosinophils 1.2 % (0.0-10.0); %Monocytes 4.3 % (0.0-10.0); Hematocrit 39.9 % (36.0-47.0); Mean Platelet Volume 7.6 fL (7.4-10.4); Red Blood Cell (RBC) Count 5.36 mill/uL (4.20-5.40); White Blood Cell (WBC) Count 13.4 thou/uL (4.8-10.8)
[2017-04-02 18:57] LABS: ALT (SGPT) 17 U/L (8-55); AST (SGOT) 20 U/L (5-34); Alkaline Phosphatase 69 U/L (40-150); Anion Gap 11 mmol/L (10-20); BUN (Urea Nitrogen) 5 mg/dL (7.0-18.7); Bilirubin, Total 0.4 mg/dL (0.2-1.2); CK (CPK) 30 U/L (29-168); Calc. Creatinine Clearance 0 mL/min (70-130); Calcium 10.2 mg/dL (7.8-10.44); Carbon Dioxide 31 mmol/L (22-29); Chloride 100 mmol/L (98-107); Estimated GFR-MDRD 82; Globulin 4.6 g/dL (2.4-3.5); Lipase 16 U/L (8-78); Protein, Total 8.8 g/dL (6.0-8.3)
[2017-04-02 19:01] LABS: Troponin I Less than 0.010 ng/mL (< 0.028)
[2017-04-02] MEDS ORDERED: Aspirin 81 mg Enteric Coated Tablet ONE (19:06)
[2017-04-02] MEDS ORDERED: Ketorolac Tromethamine 30 MG/ML VIAL ONE (19:37)
== END 2017-04-02 22:10 | disposition home or self-care (01) ==
LOC: ERS 18:07
DX: R07.89 Other chest pain (principal); I10 Essential (primary) hypertension; E66.9 Obesity, unspecified; J45.909 Unspecified asthma, uncomplicated; K21.9 Gastro-esophageal reflux disease without esophagitis; K31.84 Gastroparesis; F41.9 Anxiety disorder, unspecified; F32.9 Major depressive disorder, single episode, unspecified
CPT/HCPCS: 71010; 80053; 82553; 83690; 84484; 85025; 85379; 93005; 96361; 96374; J1885

== ENCOUNTER 2017-05-16 12:32 | Emergency (ER) | payer BC, OTHER ==
[2017-05-16 13:04] LABS: #Eosinphils 0.1 thou/uL (0.0-0.7); #Lymphocytes 2.3 thou/uL (1.20-3.40); #Monocytes 0.4 thou/uL (0.11-0.59); #Neutrophils 5.4 thou/uL (1.40-6.50); %Basophils 0.6 % (0.0-1.0); %Eosinophils 1.8 % (0.0-10.0); %Lymphocytes 27.4 % (21.0-51.0); %Monocytes 5.1 % (0.0-10.0); Hematocrit 37.8 % (36.0-47.0); Mean Platelet Volume 7.3 fL (7.4-10.4); Red Blood Cell (RBC) Count 4.91 mill/uL (4.20-5.40); White Blood Cell (WBC) Count 8.3 thou/uL (4.8-10.8)
[2017-05-16 13:26] LABS: ALT (SGPT) 10 U/L (8-55); AST (SGOT) 13 U/L (5-34); Alkaline Phosphatase 63 U/L (40-150); Anion Gap 10 mmol/L (10-20); BUN (Urea Nitrogen) 7 mg/dL (7.0-18.7); Bilirubin, Total 0.5 mg/dL (0.2-1.2); Calc. Creatinine Clearance 0 mL/min (70-130); Calcium 9.9 mg/dL (7.8-10.44); Carbon Dioxide 30 mmol/L (22-29); Chloride 101 mmol/L (98-107); Estimated GFR-MDRD 88; Globulin 4.3 g/dL (2.4-3.5); Lipase 22 U/L (8-78); Protein, Total 8.2 g/dL (6.0-8.3)
[2017-05-16 13:54] LABS: Bilirubin Negative (Negative); Blood, Urine Negative (Negative); Glucose, Urine (Dipstick) Negative (Negative); Ketone, Urine Negative (Negative); Nitrite Negative (Negative); Protein, Urine (Dipstick) Negative (Neg-Trace); Urobilinogen 0.2 mg/dL (0.2-1.0)
--- NOTE | 2017-05-16 16:12 | ULT ---
RIGHT UPPER QUADRANT ULTRASOUND 05/16/17 HISTORY: Right upper quadrant abdominal pain. COMPARISON: 03/20/13. FINDINGS: There is increased echogenicity of the liver suggesting diffuse fatty infiltration. This limits evalu ation of the hepatic parenchyma, but no definite focal hepatic lesion is visualized. The liver is bor derline increased in size measuring 17.9 cm in craniocaudal dimensions. The gallbladder, visualized portions of the IVC, visualized portions of the pancreas, and right kidne y demonstrate a normal sonographic appearance. The right kidney measures 9.1 cm in length. The common duct measures 0.6 cm in diameter which is at the upper limits of normal in size. There is question of trace sludge within the gallbladder lumen. No gallbladder calculus is seen. IMPRESSION: 1. Fatty infiltration of the liver with upper limits of normal to borderline enlargement of the liver. 2. Trace amount of sludge in gallbladder lumen. No gallbladder calculus is present. POS: [facility]
== END 2017-05-16 14:20 | disposition home or self-care (01) ==
LOC: ERS 12:32
DX: R10.13 Epigastric pain (principal); E66.9 Obesity, unspecified; D64.9 Anemia, unspecified; F32.9 Major depressive disorder, single episode, unspecified; F41.9 Anxiety disorder, unspecified; I10 Essential (primary) hypertension; J45.909 Unspecified asthma, uncomplicated; K21.9 Gastro-esophageal reflux disease without esophagitis; G47.30 Sleep apnea, unspecified
CPT/HCPCS: 36415; 76705; 80053; 81003; 82150; 83690; 85025; 86140

== ENCOUNTER 2017-06-25 16:59 | Emergency (ER) | payer BC ==
[2017-06-25] MEDS ORDERED: Metoclopramide HCl 10 MG/2 ML VIAL ONE (19:58)
[2017-06-25] MEDS ORDERED: diphenhydrAMINE 50 MG/ML VIAL ONE (19:58)
[2017-06-25 21:39] LABS: #Eosinphils 0.2 thou/uL (0.0-0.7); #Lymphocytes 2.5 thou/uL (1.20-3.40); #Monocytes 0.5 thou/uL (0.11-0.59); #Neutrophils 8.6 thou/uL (1.40-6.50); %Basophils 0.3 % (0.0-1.0); %Eosinophils 2.1 % (0.0-10.0); %Lymphocytes 21.1 % (21.0-51.0); %Monocytes 4.1 % (0.0-10.0); %Neutrophils 72.5 % (42.0-75.0); Hemoglobin 11.6 g/dL (12.0-16.0); Mean Corpuscular HGB CONC 31.9 g/dL (32.0-36.0); Mean Corpuscular Hemoglobin 25.2 pg (27.0-31.0); Mean Corpuscular Volume 78.9 fl (81.0-99.0); Mean Platelet Volume 6.9 fL (7.4-10.4); Platelet Count 509 thou/uL (130-400); RBC Distribution Width 15.3 % (11.5-14.5); Red Blood Cell (RBC) Count 4.61 mill/uL (4.20-5.40); White Blood Cell (WBC) Count 11.8 thou/uL (4.8-10.8)
[2017-06-25 22:00] LABS: ALT (SGPT) 7 U/L (8-55); AST (SGOT) 8 U/L (5-34); Albumin 3.5 g/dL (3.5-5.0); Alkaline Phosphatase 67 U/L (40-150); Anion Gap 13 mmol/L (10-20); BUN (Urea Nitrogen) 8 mg/dL (7.0-18.7); Bilirubin, Total 0.2 mg/dL (0.2-1.2); Calc. Creatinine Clearance 0 mL/min (70-130); Calcium 9.3 mg/dL (7.8-10.44); Carbon Dioxide 23 mmol/L (22-29); Chloride 106 mmol/L (98-107); Estimated GFR-MDRD Greater than 90; Globulin 4.4 g/dL (2.4-3.5); Glucose 75 mg/dL (70-105); Magnesium 2.1 mg/dL (1.6-2.6); Potassium 3.8 mmol/L (3.5-5.1); Protein, Total 7.9 g/dL (6.0-8.3); Sodium 138 mmol/L (136-145)
--- NOTE | 2017-06-25 22:11 | CT ---
CT BRAIN WITHOUT CONTRAST 06/25/17 HISTORY: Headache. COMPARISON: CT brain 03/03/17. FINDINGS: No acute territorial infarct or hemorrhage. No midline shift or mass effect. Ventricular size and ext ra-axial CSF spaces are normal. The paranasal sinuses and mastoids are clear. IMPRESSION: No acute intracranial abnormality. No significant change. POS: [facility]
[2017-06-25] MEDS ORDERED: Lidocaine 1% w/Epinephrine 1:100K 20 ML VIAL ONE (22:57)
[2017-06-25] MEDS ORDERED: Ketorolac Tromethamine 30 MG/ML VIAL ONE (23:32)
[2017-06-25] MEDS ORDERED: Morphine 4 MG/ML VIAL ONE (23:34)
[2017-06-25 23:43] LABS: CSF Source CSF; Clarity Clear (Clear); RBC Count - Manual 710 /cumm (None Seen); Tube # 1
[2017-06-25 23:44] LABS: CSF Source CSF; Clarity Clear (Clear); Tube # 4; WBC/NonHematics Count - Manual 5 /cumm (0-5)
[2017-06-25] MEDS ORDERED: AcetaZOLAMIDE 250 MG TAB PO SCH (23:45)
[2017-06-25 23:48] LABS: RBC Count - Manual 35 /cumm (None Seen); WBC/NonHematics Count - Manual 3 /cumm (0-5)
[2017-06-26 00:11] LABS: CSF, Glucose 60 mg/dl (40-70); CSF, Protein 21 mg/dL (15-40)
[2017-06-26 00:30] LABS: Color Of CSF Supernatant COLORLESS (Colorless); Tube # 2; Unspun CSF Color COLORLESS (Colorless)
== END 2017-06-26 00:15 | disposition home or self-care (01) ==
LOC: ERS 16:59
DX: G93.2 Benign intracranial hypertension (principal); J45.909 Unspecified asthma, uncomplicated; E66.9 Obesity, unspecified; K21.9 Gastro-esophageal reflux disease without esophagitis; F41.9 Anxiety disorder, unspecified; F32.9 Major depressive disorder, single episode, unspecified; D64.9 Anemia, unspecified
CPT/HCPCS: 36415; 62270; 70450; 80053; 82945; 83735; 84157; 85025; 85652; 87070; 87205; 89051; 96361; 96374; 96375; J1200; J1885; J2001; J2270; J2765

== ENCOUNTER 2017-09-20 11:55 | Emergency (ER) | payer BC, SELFPAY ==
[2017-09-20] MEDS ORDERED: Ciprofloxacin HCL/Dexameth Otic Drops 7.5 ml Bottle ONE (14:07)
[2017-09-20] MEDS ORDERED: Acetaminophen 500 MG TAB ONE (15:12)
== END 2017-09-20 15:15 | disposition home or self-care (01) ==
LOC: ERS 11:55
DX: M26.621 Arthralgia of right temporomandibular joint (principal); I10 Essential (primary) hypertension; E66.9 Obesity, unspecified; J45.909 Unspecified asthma, uncomplicated; K21.9 Gastro-esophageal reflux disease without esophagitis; D64.9 Anemia, unspecified; F41.9 Anxiety disorder, unspecified; F32.9 Major depressive disorder, single episode, unspecified; Z79.899 Other long term (current) drug therapy
CPT/HCPCS: 99283

== ENCOUNTER 2017-10-15 13:52 | Emergency (ER) | payer SELFPAY ==
[2017-10-15 14:54] LABS: #Eosinphils 0.2 thou/uL (0.0-0.7); #Lymphocytes 1.9 thou/uL (1.20-3.40); #Monocytes 0.3 thou/uL (0.11-0.59); #Neutrophils 5.3 thou/uL (1.40-6.50); %Basophils 0.4 % (0.0-1.0); %Eosinophils 2.3 % (0.0-10.0); %Lymphocytes 24.7 % (21.0-51.0); %Monocytes 4.2 % (0.0-10.0); %Neutrophils 68.5 % (42.0-75.0); Hemoglobin 11.4 g/dL (12.0-16.0); Mean Corpuscular Hemoglobin 25.4 pg (27.0-31.0); Mean Corpuscular Volume 77.1 fl (81.0-99.0); Mean Platelet Volume 6.8 fL (7.4-10.4); Platelet Count 511 thou/uL (130-400); Red Blood Cell (RBC) Count 4.47 mill/uL (4.20-5.40); White Blood Cell (WBC) Count 7.7 thou/uL (4.8-10.8)
[2017-10-15] MEDS ORDERED: Metoclopramide HCl 10 MG/2 ML VIAL ONE (15:02)
[2017-10-15] MEDS ORDERED: Acetaminophen 500 MG TAB ONE (15:02)
[2017-10-15] MEDS ORDERED: diphenhydrAMINE 50 MG/ML VIAL ONE (15:02)
[2017-10-15 15:17] LABS: CKMB 0.3 ng/mL (0-6.6); Troponin I Less than 0.010 ng/mL (< 0.028)
[2017-10-15 15:28] LABS: ALT (SGPT) 8 U/L (8-55); AST (SGOT) 12 U/L (5-34); Albumin 3.8 g/dL (3.5-5.0); Alkaline Phosphatase 71 U/L (40-150); Anion Gap 12 mmol/L (10-20); BUN (Urea Nitrogen) 8 mg/dL (7.0-18.7); Bilirubin, Total 0.3 mg/dL (0.2-1.2); CK (CPK) 45 U/L (29-168); Calc. Creatinine Clearance 0 mL/min (70-130); Calcium 9.5 mg/dL (7.8-10.44); Carbon Dioxide 27 mmol/L (22-29); Chloride 102 mmol/L (98-107); Estimated GFR-MDRD 79; Globulin 4.2 g/dL (2.4-3.5); Glucose 102 mg/dL (70-105); Potassium 3.5 mmol/L (3.5-5.1); Sodium 137 mmol/L (136-145)
--- NOTE | 2017-10-15 16:01 | RAD ---
CHEST ONE VIEW: 10/15/17 HISTORY: Chest pain. COMPARISON: 04/02/17. FINDINGS: Cardiac silhouette is magnified by projection. Pulmonary vasculature is unremarkable. Mediastinum is midline. There is no lobar consolidation or evidence of pneumothorax. Left rotator cuff calcification s apparent. IMPRESSION: No active cardiopulmonary abnormalities are demonstrated. POS: [facility]
[2017-10-15] MEDS ORDERED: traMADol HCl 50 MG TAB ONE (17:21)
== END 2017-10-15 17:41 | disposition home or self-care (01) ==
LOC: ERS 13:52
DX: R51 Headache (principal); I10 Essential (primary) hypertension; E66.9 Obesity, unspecified; J45.909 Unspecified asthma, uncomplicated; K21.9 Gastro-esophageal reflux disease without esophagitis; D64.9 Anemia, unspecified; G47.30 Sleep apnea, unspecified; F41.9 Anxiety disorder, unspecified; F32.9 Major depressive disorder, single episode, unspecified; Z79.899 Other long term (current) drug therapy
CPT/HCPCS: 71045; 80053; 82550; 82553; 83880; 84484; 85025; 93005; 96365; 96366; 96375; J1200; J2765

== ENCOUNTER 2018-02-05 17:39 | Observation (INO) | payer BC, OTHER, SELFPAY ==
[2018-02-05 18:04] LABS: Hemoglobin 11.6 g/dL (12.0-16.0); Mean Platelet Volume 6.5 fL (7.4-10.4); Platelet Count 527 thou/uL (130-400); Red Blood Cell (RBC) Count 4.67 mill/uL (4.20-5.40); White Blood Cell (WBC) Count 11.5 thou/uL (4.8-10.8)
--- NOTE | 2018-02-05 18:10 | RAD ---
CHEST ONE VIEW: 02/05/18 HISTORY: Chest pain. Dyspnea. COMPARISON: 10/15/17. FINDINGS: The cardiac silhouette magnified by projection. Pulmonary vasculature is unremarkable. Mediastinum is midline. No lobar consolidation or evidence of pneumothorax. IMPRESSION: No active cardiopulmonary abnormalities are demonstrated. POS: [facility]
[2018-02-05 18:23] LABS: Band 9 % (5-11); Lymphocytes 24 % (21-51); MDiff Complete? YES; Mean Corpuscular HGB CONC 33.1 g/dL (32.0-36.0); Mean Corpuscular Hemoglobin 24.8 pg (27.0-31.0); Metamyelocyte 1 % (0-0); Microcytosis SLIGHT = 6-15 cells (100X) (0-5/hpf); Monocytes 2 % (0-10); Neutrophil 63 % (42-75); RBC Distribution Width 14.8 % (11.5-14.5); Reactive Lymphocytes 1 % (0-10)
[2018-02-05] MEDS ORDERED: diphenhydrAMINE 50 MG/ML VIAL ONE (18:23)
[2018-02-05] MEDS ORDERED: Metoclopramide HCl 10 MG/2 ML VIAL ONE (18:23)
[2018-02-05] MEDS ORDERED: Lidocaine Viscous Sol 2% 15 ml UD Cup ONE (18:24)
[2018-02-05] MEDS ORDERED: Mag-Al 1200 mg/1200 mg/30 ML UDCUP ONE (18:24)
[2018-02-05 18:26] LABS: ALT (SGPT) 9 U/L (8-55); AST (SGOT) 12 U/L (5-34); Albumin 4.1 g/dL (3.5-5.0); Alkaline Phosphatase 77 U/L (40-150); Anion Gap 13 mmol/L (10-20); BUN (Urea Nitrogen) 8 mg/dL (7.0-18.7); Bilirubin, Total 0.3 mg/dL (0.2-1.2); CK (CPK) 65 U/L (29-168); Calc. Creatinine Clearance 0 mL/min (70-130); Calcium 9.7 mg/dL (7.8-10.44); Carbon Dioxide 29 mmol/L (22-29); Chloride 101 mmol/L (98-107); Estimated GFR-MDRD 81; Globulin 4.6 g/dL (2.4-3.5); Glucose 88 mg/dL (70-105); Potassium 3.6 mmol/L (3.5-5.1); Protein, Total 8.7 g/dL (6.0-8.3); Sodium 139 mmol/L (136-145)
[2018-02-05 18:43] LABS: CKMB 0.4 ng/mL (0-6.6); Troponin I Less than 0.010 ng/mL (< 0.028)
--- NOTE | 2018-02-05 18:56 | ULT ---
SONOGRAM RIGHT UPPER QUADRANT: 02/05/18 HISTORY: Right upper quadrant pain. FINDINGS: The gallbladder has a normal appearance without evidence of stones. Common duct is 0.5 cm. Liver is u nremarkable without focal mass or intrahepatic biliary dilatation. No free fluid. IMPRESSION: No significant abnormalities are demonstrated. POS: [facility]
[2018-02-05] MEDS ORDERED: Ketorolac Tromethamine 30 MG/ML VIAL ONE (19:42)
[2018-02-05] MEDS ORDERED: Morphine 4 MG/ML VIAL ONE (21:00)
[2018-02-05 21:18] LABS: Troponin I Less than 0.010 ng/mL (< 0.028)
--- NOTE | 2018-02-05 21:36 | PDOC.FPRHP ---
- History of Present Illness Chief Complaint: Chest Pain History of Present Illness: Ms. Morrison is a 47YO AA female with a PMH significant for GERD, anxiety/ depression, and HTN who presented to the ED with a chief complaint of chest pain. The patient reports that the chest pain started 3 days ago while she was sitting on the couch watching tv. She said before today, the pain was episodic lasting a couple of hours at a time and resolving spontaneously. However, since waking up this AM the pain has been constant. She describes the pain as constant , sharp, & stabbing in nature in the center of her chest. The patient states that it is non-radiating and cannot identify any exacerbating or alleviating factors. She denies any worsening with eating or exertion. The patient endorses some associated nausea and vomiting x 1 today as well as some lightheadedness. She denies any fever, chills, hematemesis, diaphoresis or abdominal pain. In addition, the patient reports an approximate 54 pound unintentional weight loss with some associated decreased appetite over the past year. However, per chart review she has lost only ~19 pounds since last February. Also of note, upon further questioning the patient admitted that she takes cymbalta for anxiety and depression. She also admitted that she is currently unemployed which has added a great deal of stress to her life. Lastly, per chart review, the patient had a normal nuclear stress test in 2017 and a normal LHC in 2016. ED Course: Patient was given IV morphine, a GI cocktail, Benadryl, Toradol, and Reglan in the ED. She was also given PO ASA. - Allergies/Adverse Reactions Allergies Allergy/AdvReac Type Severity Reaction Status Date / Time No Known Allergies Allergy Verified 03/16/17 11:55 - Home Medications Medication Instructions Recorded Confirmed Type Hydrochlorothiazide 12.5 mg PO DAILY 12/21/12 03/16/17 History DULoxetine HCl [Cymbalta] 120 mg PO QAM 06/20/15 03/16/17 History traZODone HCl [Trazodone HCl] 150 mg PO HS 06/20/15 03/16/17 History risperiDONE [Risperdal] 1 mg PO HS 03/04/17 03/16/17 History Ascorbic Acid [Vitamin C] 500 mg PO BID tab 09/17/17 09/26/17 Rx Ferrous Gluconate [Fergon] 324 mg PO BID-WM #60 tab 03/07/17 03/16/17 Rx SUMAtriptan Succinate [Imitrex] 50 mg PO TID PRN #30 tab 03/07/17 03/16/17 Rx Albuterol Sulfate [Proair HFA] 2 puff PO PRN PRN 03/16/17 03/16/17 History Gabapentin [Neurontin] 300 mg PO HS 03/16/17 03/16/17 History Omeprazole 40 mg PO BID 03/16/17 03/16/17 History Tramadol HCl 50 mg PO PRN PRN 03/16/17 03/16/17 History predniSONE 20 mg PO QAM-WM 03/16/17 03/16/17 History - History PMHx: GERD, anxiety, depression, HTN, anemia, gastroparesis, obesity, asthma, h/ o migraine headaches PSHx: tubal ligation, uterine ablation, temporal artery biopsies FHx: Maternal grandmother - from an [place] & had cardiomegaly Social: No former or current tobacco, EtOH, or drug use - Review of Systems General: reports: weight/appetite/sleep changes. denies: fever/chills Eyes: denies: eye pain, vision changes ENT: reports: other (No throat or ear pain). denies: rhinorrhea Respiratory: reports: cough, shortness of breath, exercise intolerance Cardiovascular: reports: chest pain. denies: edema Gastrointestinal: reports: nausea, vomiting. denies: diarrhea, constipation, abdominal pain, GI bleeding Genitourinary: reports: other (No urinary frequency). denies: dysuria Skin: denies: rashes, itching Musculoskeletal: reports: arthritis/arthralgias (in B/L knees). denies: pain Neurological: denies: numbness, syncope, weakness Psychological: reports: anxiety, depression - Vital signs BP: 131/85 HR: 65 RR: 20 Tmax: 98.3 Pox: 96% on RA Wt: 107kg - Physical Exam Constitutional: NAD, awake, alert and oriented, well developed HEENT: normocephalic and atraumatic, PERRLA, conjunctiva clear, grossly normal vision, grossly normal hearing, MMM, oropharynx clear Neck: supple, no LAD Chest: no-tender to palpation, no lesions Heart: RRR, normal S1/S2, no murmurs/rubs/gallops, pulses present, no edema Lungs: CTAB, no respiratory distress, good air movement, no rales/rhonchi, no wheezing, no retractions Abdomen: soft, non-tender, bowel sounds present, no masses/distention Musculoskeletal: normal structure, ROM grossly normal Neurological: no focal deficit, CN II-XII intact, normal sensation Skin: no rash/lesions, good turgor Heme/Lymphatic: no purpura, no petechia Psychiatric: good judgment and insight, intact recent and remote memory, other ( Anxious affect) FMR H&P: Results - Labs Result Diagrams: 02/05/18 17:49 02/05/18 17:49 Lab results: WBC 11.5 thou/uL (4.8-10.8) H 02/05/18 17:49 Hgb 11.6 g/dL (12.0-16.0) L 02/05/18 17:49 Hct 35.0 % (36.0-47.0) L 02/05/18 17:49 MCV 75.0 fL (78.0-98.0) L 02/05/18 17:49 Plt Count 527 thou/uL (130-400) H 02/05/18 17:49 Band Neuts % (Manual) 9 % (5-11) 02/05/18 17:49 Sodium 139 mmol/L (136-145) 02/05/18 17:49 Potassium 3.6 mmol/L (3.5-5.1) 02/05/18 17:49 Chloride 101 mmol/L (98-107) 02/05/18 17:49 Carbon Dioxide 29 mmol/L (22-29) 02/05/18 17:49 BUN 8 mg/dL (7.0-18.7) 02/05/18 17:49 Creatinine 0.90 mg/dL (0.6-1.1) 02/05/18 17:49 Glucose 88 mg/dL (70-105) 02/05/18 17:49 Calcium 9.7 mg/dL (7.8-10.44) 02/05/18 17:49 Total Bilirubin 0.3 mg/dL (0.2-1.2) 02/05/18 17:49 AST 12 U/L (5-34) 02/05/18 17:49 ALT 9 U/L (8-55) 02/05/18 17:49 Alkaline Phosphatase 77 U/L (40-150) 02/05/18 17:49 Creatine Kinase 65 U/L (29-168) 02/05/18 17:49 CK-MB (CK-2) 0.4 ng/mL (0-6.6) 02/05/18 17:49 Serum Total Protein 8.7 g/dL (6.0-8.3) H 02/05/18 17:49 Albumin 4.1 g/dL (3.5-5.0) 02/05/18 17:49 Lipase 16 U/L (8-78) 02/05/18 17:49 - Radiology Interpretation Chest x-ray Status: image reviewed by me, report reviewed by me (No acute cardiopulmonary process) US - abdomen Status: report reviewed by me (Normal gallbladder & liver with no freee fluid.) FMR H&P: A/P - Problem List (1) Chest pain Current Visit: Yes Status: Active Priority: High Code(s): R07.9 - CHEST PAIN, UNSPECIFIED (2) Anxiety Current Visit: Yes Status: Chronic Code(s): F41.9 - ANXIETY DISORDER, UNSPECIFIED (3) Depression Current Visit: Yes Status: Chronic Code(s): F32.9 - MAJOR DEPRESSIVE DISORDER, SINGLE EPISODE, UNSPECIFIED (4) GERD (gastroesophageal reflux disease) Current Visit: Yes Status: Chronic Code(s): K21.9 - GASTRO-ESOPHAGEAL REFLUX DISEASE WITHOUT ESOPHAGITIS (5) Anemia, iron deficiency Current Visit: Yes Status: Chronic Code(s): D50.9 - IRON DEFICIENCY ANEMIA, UNSPECIFIED (6) Hypertension Current Visit: Yes Status: Chronic Code(s): I10 - ESSENTIAL (PRIMARY) HYPERTENSION (7) Asthma Current Visit: Yes Status: Chronic Code(s): J45.909 - UNSPECIFIED ASTHMA, UNCOMPLICATED (8) BAM (obstructive sleep apnea) Current Visit: Yes Status: Acute Code(s): G47.33 - OBSTRUCTIVE SLEEP APNEA ( ADULT) (PEDIATRIC) (9) Obesity Current Visit: Yes Status: Chronic Code(s): E66.9 - OBESITY, UNSPECIFIED (10) Gastroparesis Current Visit: Yes Status: Chronic Code(s): K31.84 - GASTROPARESIS (11) Migraine Current Visit: No Status: Chronic Code(s): G43.909 - MIGRAINE, UNSP, NOT INTRACTABLE, WITHOUT STATUS MIGRAINOSUS (12) Thrombocytosis Current Visit: Yes Status: Chronic - Plan 47YO female with PMH of HTN, anxiety/depression, and GERD who presents to the ED with a chief complaint of sharp, stabbing central chest pain for the past 3 days. 1. Chest pain - Uncertain etiology at this point. Could be 2/2 anxiety vs. GERD vs. ischemia. Labs so far have been reassuring as initial troponin with WNL and ECG showed NSR. CXR was also negative for widened mediastinum or any other acute cardiopulmonary process. Vitals have been stable. - Will trend troponins overnight and admit to telemetry for observation. - Will continue tylenol & hydroxyzine PRN for pain and anxiety. - s/p GI cocktial in the ED. Will continue protonix for GI PPx. - Will make NPO after midnight and order an AM nuclear stress test. Will also order an AM fasting lipid panel to assess whether or not statin therapy is indicated. 2. Thrombocytosis: - Likely 2/ MITCH. Iron studies from [facility] admission showed this and platelet count has been as high as >600 in the past. - Will start on ferrous sulfate BID. 3. Anxiety: - Patient is on cymbalta and risperdal at home. - Will resume home meds. - Will also add hydroxyzine as noted above as anxiety may be source of chest pain. 4. Depression: - Aware, will resume home meds. 5. GERD: - Aware, will resume home meds. 6. Iron deifciency Anemia: - Aware. H/H mildly low @ 11.6/35 on admission. - Will start on iron supplementation as described above. 7. HTN: - Aware, will resume home meds. 8. Asthma: - Aware, will resume home meds. 9. BAM: - Aware. 10. Obesity: - Aware. - Will marriage and family counselor on importance of diet and exercise. 11. Gastroparesis: - Aware. 12. h/o migraine HAs: - Aware, will resume home meds. FMR H&P: Upper Level - Pertinent history Jesusita Morrison is a 47 year old female with a history of hypertension and no previous CAD who presents to the ED for evaluation of chest pain. She reports a 2 day history of intermittent substernal, stabbing chest pain lasting for a couple of hours at a time and going away on its own. The pain is non- radiating. There are no exacerbating or alleviating factors. She also reports associated nausea with one episode of emesis as well as lightheadedness. Of note, she had a left heart catheterization one year ago which showed normal coronaries, and a negative stress test in 2014. 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 - Pertinent findings Vitals: BP: 121/78 P: 69 RR: 22 T: 98.3 SpO2: 100% on RA Physical Exam: General: alert and oriented, in no apparent distress Heart: Regular rate and rhythm, no murmurs, rubs, or gallops. No reproducible chest pain. Lungs: Clear to auscultation bilaterally Abomen: soft, non-tender, non-distended Extremities: no peripheral edema; distal pulses 2+ Trop: < 0.01; CBC wbc 11.5, Hgb 11.6, Hct - 33.0, Plt- 527 CXR: no acute cardiopulmonary abnormalities - Plan Date/Time: 02/05/182128 IDebby, have evaluated this patient and agree with findings/plan as outlined by post graduate intern resident. Pertinent changes/additions are listed here. Atypical chest pain likely secondary to anxiety. - Heart score 4 - We will admit patient to telemetry for observation - will continue to trend trops. - NM stress test in AM. NPO at midnight. - Will try Hydroxyzine prn to treat anxiety. - FLP to calculate ASCVD risk score. Mg, Phos, TSH as well. Thrombocytosis - chronic - Pt had a peripheral smear in 02/2017 that showed hypochromic normocytic anemia and thrombocytosis. Likely related to Iron deficiency anemia. Recommend PO iron supplementation. Iron deficiency anemia - As above. - Has had relatively normal endoscopic workup in 2016. Normal Hgb electrophoresis. Unintentional Weight loss - 20 lb weight loss since last year. - possibly related to gastroparesis vs depression. Hypertension - Home meds Depression/Anxiety - Continue home meds Gastroparesis - Not on medications. Continue to monitor. GERD - Continue omeprazole Asthma - Albuterol inhaler prn BAM PPx: DVT - Lovenox
[2018-02-05 21:40] LABS: Bilirubin Negative (Negative); Blood, Urine Negative (Negative); Clarity CLOUDY (Clear); Glucose, Urine (Dipstick) Negative (Negative); Leukocyte Negative (Negative); Nitrite Negative (Negative); Protein, Urine (Dipstick) Negative (Neg-Trace); Specific Gravity, Urine 1.013 (1.002-1.036); Urobilinogen 0.2 mg/dL (0.2-1.0)
[2018-02-05] MEDS ORDERED: Nitroglycerin 2% Ointment 1 INCH/1 GM Packet ONE (22:07)
[2018-02-05] MEDS ORDERED: Acetaminophen 650 MG Suppository PR PRN (23:09)
[2018-02-05] MEDS ORDERED: hydrOXYzine 25 MG TAB PO PRN (23:09)
[2018-02-05] MEDS ORDERED: Ondansetron HCl/PF 4 MG/2 ML Vial IVP PRN (23:09)
[2018-02-05] MEDS: Nitroglycerin 0.4 MG TAB (25 Tab Bottle) ONE ×2 (23:10→23:30)
[2018-02-05 23:19] VITALS: BMI 39.4
[2018-02-06 00:32] LABS: Troponin I Less than 0.010 ng/mL (< 0.028)
[2018-02-06 01:23] LABS: Amphetamine Not Detected (NotDetected); Barbiturates Screen Detected (NotDetected); Benzodiazepine Screen Not Detected (NotDetected); Cocaine Metabolite Screen Not Detected (NotDetected); Medtox Control Line Valid? VALID (VALID); Medtox Reader # READER 4; Methadone Not Detected (NotDetected); Methamphetamine Not Detected (NotDetected); Opiate Screen Detected (NotDetected); Oxycodone Screen Not Detected (NotDetected); Phencyclidine (PCP) Not Detected (NotDetected); THC/Cannabinoid Screen Not Detected (NotDetected); Tricyclic Screen Not Detected (NotDetected)
--- NOTE | 2018-02-06 06:13 | PDOC.FM ---
- Subjective Subjective: No new events overnight. Patient is improved this morning but says her chest pain has continued throughout the night. She notes it is still a 7/10 for her pain. She also endorses continued SOB. She received hydroxyzine for her anxiety. She denies chest pain or palpitations. She denies SOB, abdominal pain, NVD, or subjective fever. - Objective MAR Reviewed: Yes Vital Signs & Weight: Vital Signs (12 hours) Temp Pulse Resp BP BP BP BP 02/06/18 02:30 97.5 F L 55 L 16 109/63 02/05/18 23:53 98.6 F 62 18 02/05/18 23:51 54 L 127/68 122/64 99/59 L 02/05/18 23:35 109/59 L 02/05/18 23:15 114/59 L 02/05/18 22:58 98.6 F 62 18 131/77 Pulse Ox 02/06/18 02:30 97 02/05/18 23:53 02/05/18 23:51 02/05/18 23:35 02/05/18 23:15 02/05/18 22:58 97 Weight Weight 107.365 kg I&O: 02/04/18 02/05/18 02/06/18 06:59 06:59 06:59 Intake Total 120 Output Total 150 Balance -30 Result Diagrams: 02/05/18 17:49 02/05/18 17:49 Phys Exam - Physical Examination Constitutional: NAD resting comfortably HEENT: PERRLA, moist MMs, sclera anicteric Neck: no JVD, supple, full ROM Respiratory: no wheezing, no rales, no rhonchi, clear to auscultation bilateral not tachypnic Cardiovascular: RRR, no significant murmur, no rub Gastrointestinal: soft, non-tender, no distention, positive bowel sounds Musculoskeletal: pulses present 1+ pitting edema to the ankles bilaterally Neurological: non-focal, moves all 4 limbs Psychiatric: A&O x 3 Deviation from normal: anxious/flat affect Skin: no rash Dx/Plan (1) Chest pain Code(s): R07.9 - CHEST PAIN, UNSPECIFIED Status: Active (2) Anxiety Code(s): F41.9 - ANXIETY DISORDER, UNSPECIFIED Status: Chronic (3) Depression Code(s): F32.9 - MAJOR DEPRESSIVE DISORDER, SINGLE EPISODE, UNSPECIFIED Status : Chronic (4) Anemia, iron deficiency Code(s): D50.9 - IRON DEFICIENCY ANEMIA, UNSPECIFIED Status: Chronic (5) GERD (gastroesophageal reflux disease) Code(s): K21.9 - GASTRO-ESOPHAGEAL REFLUX DISEASE WITHOUT ESOPHAGITIS Status: Chronic (6) Hypertension Code(s): I10 - ESSENTIAL (PRIMARY) HYPERTENSION Status: Chronic (7) BAM (obstructive sleep apnea) Code(s): G47.33 - OBSTRUCTIVE SLEEP APNEA (ADULT) (PEDIATRIC) Status: Acute (8) Gastroparesis Code(s): K31.84 - GASTROPARESIS Status: Chronic (9) Obesity Code(s): E66.9 - OBESITY, UNSPECIFIED Status: Chronic (10) Thrombocytosis Status: Chronic (11) Migraine Code(s): G43.909 - MIGRAINE, UNSP, NOT INTRACTABLE, WITHOUT STATUS MIGRAINOSUS Status: Chronic - Plan Plan: 47YO female with PMH of HTN, anxiety/depression, and GERD who presents to the ED with a chief complaint of sharp, stabbing central chest pain for the past 3 days. Will follow up stress results today. Chest pain - Uncertain etiology at this point. Could be 2/2 anxiety vs. GERD vs. ischemia. - ECG showed NSR. CXR no acute cardiopulm process. Vitals have been stable. - Trop Neg X 3 - UDS: positive for opiates and barbiturates - Will continue tylenol & hydroxyzine PRN for pain and anxiety. - s/p GI cocktial in the ED. Will continue protonix for GI PPx. - Fasting lipid panel: T, LDL: 144, Choles: 220H, HDL: 49 - TSH: 3.2 nml - NPO since midnight for AM nuclear stress test. Will f/u results Thrombocytosis - Likely 2/ MITCH. Iron studies from [facility] showed this and platelet count has been as high as >600 in the past. - Will start on ferrous sulfate BID. Anxiety - Patient is on cymbalta and risperdal at home. - Will resume home meds. - Will also add hydroxyzine as noted above as anxiety may be source of chest pain. Depression - Will resume home meds. GERD - Will resume home meds. Iron deifciency Anemia - Aware. H/H mildly low @ 11.6/35 on admission. - Will start on iron supplementation as described above. HTN - Will resume home meds. Asthma - Will resume home meds. BAM - Aware. Patient does not use CPAP at home. Will watch vital signs Obesity - Will counselor dormitory on importance of diet and exercise. Gastroparesis - Aware. h/o migraine HAs - Will resume home meds. DISPO: likely discharge later today pending stress test results CODE: FULL Case discussed with Lenin
[2018-02-06 06:14] LABS: Cardiac Risk 4.5 (Less than 4.5); Magnesium 2.2 mg/dL (1.6-2.6); Phosphorus 3.5 mg/dL (2.3-4.7)
[2018-02-06] MEDS ORDERED: Regadenoson 0.4 MG/5 ML SYRINGE ONE (08:11)
[2018-02-06] MEDS ORDERED: Acetaminophen 325 MG TAB PO PRN (14:18)
[2018-02-06] MEDS: Enoxaparin Sodium 40 MG/0.4 ML SYRINGE SC SCH (14:28)
[2018-02-06] MEDS ORDERED: PROVENTIL INHALER 6.7 G (200 INHALATIONS) INH PRN (18:51)
--- NOTE | 2018-02-06 19:12 | ADD-HP ---
ADDENDUM Please see the history and physical done by Dr. Kaylin Zavala for which I agree. The patient was se en and evaluated and discussed examined the patient by bedside. HISTORY OF PRESENT ILLNESS: This is a 47-year-old female who has chronic GERD issue s and has had intermittent chest pain through the years, but has had a normal heart catheterization i n 2015. It sounds like a normal stress test, may be last year. She thinks she has lost an incredibl e amount of weight, but it looks like on chart notes, 19 pounds in the last year. It sounds like a l ot of stress in her life and is describing a constant 3-day history of a stabbing right-sided chest p ain. had a little bit of shortness of breath, but no orthopnea, no edema, some nausea, no diap horesis. Nothing seems to make it worse, nonpleuritic. Initial cardiac workup has been completely n egative. PAST MEDICAL HISTORY: All per the resident's history and physical. PAST SURGICAL HISTORY: All per the resident's history and physical. REVIEW OF SYSTEMS: All per the resident's history and physical. FAMILY HISTORY: All per the resident's history and physical. MEDICATIONS: All per the resident's history and physical. SOCIAL HISTORY: All per the resident's history and physical. REVIEW OF SYSTEMS: All per the resident's history and physical. PHYSICAL EXAMINATION: VITAL SIGNS: No apparent distress, mildly anxious affect. HEENT: Within normal limits, specifically conjunctivae not pale. Moist mucosa. CHEST: Clear. CARDIAC: Regular rate and rhythm. Cannot palpate and reproduce any chest pain. ABDOMEN: Benign. EXTREMITIES: Shows no edema. LABORATORY DATA AND X-RAY FINDINGS: Initial blood workup really is completely benign troponin. EKG is normal. Chest x-ray is normal. ASSESSMENT AND PLAN: Chest pain, atypical with numerous negative cardiac workups. I really think th is is atypical chest pain, probably reflux or anxiety related. She is already scheduled for a stress test. We will get that, but likely she is going to be able to be discharged today as long as stress test is normal and may consider adding an H2 tish to her current proton pump inhibitor assuming t his may be reflux related, but we will reassure that this definitely does not seem to be cardiac with the numerous normal stress test.
[2018-02-06] MEDS: Ibuprofen 800 MG TAB PO PRN (19:54)
[2018-02-06] MEDS: Gabapentin 300 MG CAP PO SCH (19:55)
[2018-02-06] MEDS: risperiDONE 1 MG TAB PO SCH (19:55)
--- NOTE | 2018-02-07 05:59 | PDOC.FM ---
- Subjective Subjective: No acute events overnight. States pain is improved from admission but continues. Her pain is now 5/10. SOB endorsed. She denies abdominal pain, subjective fever, NVD. - Objective MAR Reviewed: Yes Vital Signs & Weight: Vital Signs (12 hours) Temp Pulse Resp BP Pulse Ox 02/07/18 04:14 97.7 F 61 16 125/69 95 02/06/18 19:55 98.1 F 65 18 02/06/18 18:29 98.1 F 65 18 119/56 L 97 Weight Weight 107.955 kg I&O: 02/05/18 02/06/18 02/07/18 06:59 06:59 06:59 Intake Total 120 1020 Output Total 150 1925 Balance -30 -905 Result Diagrams: 02/07/18 06:16 02/07/18 06:16 <Sisi Dumont - Last Filed: 02/07/18 10:07> - Objective Vital Signs & Weight: Vital Signs (12 hours) Temp Pulse Resp BP Pulse Ox 02/07/18 11:14 98.4 F 62 16 153/70 H 94 L 02/07/18 07:48 97.7 F 61 16 02/07/18 07:22 97.5 F L 61 18 109/67 97 02/07/18 04:14 97.7 F 61 16 125/69 95 Weight Weight 107.955 kg I&O: 02/06/18 02/07/18 02/08/18 06:59 06:59 06:59 Intake Total 120 1020 Output Total 150 1925 Balance -30 -905 Result Diagrams: 02/07/18 06:16 02/07/18 06:16 <Olegario Domingo - Last Filed: 02/07/18 12:20> Phys Exam - Physical Examination Constitutional: NAD resting comfortably in the bed, no distress HEENT: PERRLA, moist MMs, sclera anicteric Neck: no JVD, supple, full ROM Respiratory: no wheezing, no rales, clear to auscultation bilateral Cardiovascular: RRR, no significant murmur, no rub Gastrointestinal: soft, non-tender, no distention, positive bowel sounds Musculoskeletal: pulses present +1 pitting edema Neurological: moves all 4 limbs Psychiatric: A&O x 3 Deviation from normal: more pleasant and normal affect today <Sisi Dumont - Last Filed: 02/07/18 10:07> Dx/Plan (1) Chest pain Code(s): R07.9 - CHEST PAIN, UNSPECIFIED Status: Active (2) Anxiety Code(s): F41.9 - ANXIETY DISORDER, UNSPECIFIED Status: Chronic (3) Depression Code(s): F32.9 - MAJOR DEPRESSIVE DISORDER, SINGLE EPISODE, UNSPECIFIED Status : Chronic (4) Anemia, iron deficiency Code(s): D50.9 - IRON DEFICIENCY ANEMIA, UNSPECIFIED Status: Chronic (5) GERD (gastroesophageal reflux disease) Code(s): K21.9 - GASTRO-ESOPHAGEAL REFLUX DISEASE WITHOUT ESOPHAGITIS Status: Chronic (6) Hypertension Code(s): I10 - ESSENTIAL (PRIMARY) HYPERTENSION Status: Chronic (7) BAM (obstructive sleep apnea) Code(s): G47.33 - OBSTRUCTIVE SLEEP APNEA (ADULT) (PEDIATRIC) Status: Acute (8) Gastroparesis Code(s): K31.84 - GASTROPARESIS Status: Chronic (9) Obesity Code(s): E66.9 - OBESITY, UNSPECIFIED Status: Chronic (10) Thrombocytosis Status: Chronic (11) Migraine Code(s): G43.909 - MIGRAINE, UNSP, NOT INTRACTABLE, WITHOUT STATUS MIGRAINOSUS Status: Chronic - Plan Plan: 47YO female with PMH of HTN, anxiety/depression, and GERD who presents to the ED with a chief complaint of sharp, stabbing central chest pain for the past 3 days. Will follow up stress results today. Chest pain - Uncertain etiology at this point. Could be 2/2 anxiety vs. GERD vs. ischemia. - ECG showed NSR. CXR no acute cardiopulm process. Vitals have been stable. - Trop Neg X 3 - UDS: positive for opiates and barbiturates - Will continue tylenol & hydroxyzine PRN for pain and anxiety. - s/p GI cocktial in the ED. Will continue protonix for GI PPx. - Fasting lipid panel: T, LDL: 144, Choles: 220H, HDL: 49 - First part of stress test neg yesterday. Will f/u with second part of stress results today. Thrombocytosis - Likely 2/ MITCH. Iron studies from [facility] showed this and platelet count has been as high as >600 in the past. - Will start on ferrous sulfate BID. Anxiety - Patient is on cymbalta and risperdal at home. - Will resume home meds. - Will also add hydroxyzine as noted above as anxiety may be source of chest pain. Depression - Will resume home meds. GERD - Will resume home meds. Iron deifciency Anemia - Aware. H/H mildly low @ 11.6/35 on admission. - Will start on iron supplementation as described above. HTN - Will resume home meds. Asthma - Will resume home meds. BAM - Aware. Patient does not use CPAP at home. Will watch vital signs Obesity - Will adult school counselor on importance of diet and exercise. Gastroparesis - Aware. h/o migraine HAs - Will resume home meds. DISPO: likely discharge today after second part of stress CODE: FULL Case discussed with Jose L <Sisi Dumont - Last Filed: 02/07/18 10:07> Attending Addendum - Attending Addendum Date/Time: 02/07/18 1219 I personally evaluated the patient and discussed the management with Dr. Dumont. I agree with the History, Examination, Assessment and Plan documented above with any addition or exceptions noted below. Patient here with chest pain suggestive of cardiac nature type pain, and her stress test now shows an area of reversible ischemia. Has history of HLD, HTN, and obesity as risk factors. Will consult cardiology to see if they recommend further in hospital workup versus outpatient workup of her anginal type pain suggestive of CAD. Likely needs initiation of BB, ACEi, and statin if truly CAD. Await cardiology recs for further dispo and mgmt. <Olegario Domingo - Last Filed: 02/07/18 12:20>
[2018-02-07 06:32] LABS: #Basophils 0.1 thou/uL (0.0-0.2); #Eosinphils 0.1 thou/uL (0.0-0.7); #Lymphocytes 1.9 thou/uL (1.20-3.40); #Monocytes 0.5 thou/uL (0.11-0.59); %Basophils 0.7 % (0.0-1.0); %Eosinophils 1.9 % (0.0-10.0); %Lymphocytes 24.9 % (21.0-51.0); %Monocytes 6.4 % (0.0-10.0); %Neutrophils 66.2 % (42.0-75.0); Hemoglobin 10.3 g/dL (12.0-16.0); Mean Corpuscular HGB CONC 31.7 g/dL (32.0-36.0); Mean Corpuscular Hemoglobin 24.3 pg (27.0-31.0); Mean Corpuscular Volume 76.6 fL (78.0-98.0); Mean Platelet Volume 6.7 fL (7.4-10.4); Platelet Count 410 thou/uL (130-400); RBC Distribution Width 14.8 % (11.5-14.5); Red Blood Cell (RBC) Count 4.24 mill/uL (4.20-5.40); White Blood Cell (WBC) Count 7.5 thou/uL (4.8-10.8)
[2018-02-07 07:07] LABS: Anion Gap 10 mmol/L (10-20); BUN (Urea Nitrogen) 9 mg/dL (7.0-18.7); Calc. Creatinine Clearance 162 mL/min (70-130); Calcium 9.3 mg/dL (7.8-10.44); Carbon Dioxide 27 mmol/L (22-29); Chloride 105 mmol/L (98-107); Estimated GFR-MDRD Greater than 90; Glucose 90 mg/dL (70-105); Potassium 3.7 mmol/L (3.5-5.1); Sodium 138 mmol/L (136-145)
[2018-02-07] MEDS: Ferrous Sulfate 325 MG TAB PO SCH ×2 (10:09→17:57)
[2018-02-07] MEDS: Hydrochlorothiazide 25 MG TAB PO SCH (10:10)
[2018-02-07] MEDS: DULoxetine 60 MG CAP PO SCH (10:10)
[2018-02-07] MEDS: Enoxaparin Sodium 40 MG/0.4 ML SYRINGE SC SCH (10:10)
[2018-02-07] MEDS: Ibuprofen 800 MG TAB PO PRN (10:12)
--- NOTE | 2018-02-07 11:04 | NM ---
MYOCARDIAL PERFUSION SCAN: INDICATION: Chest pain. The patient was given approximately 30 mCi of technetium sestamibi for both stress and rest imaging. Patient was stressed according to Lexiscan protocol. Left ventricle was imaged with SPECT imaging with CT attenuation imaging obtained. FINDINGS: There is decreased activity in the inferoapical region on stress images. Some of this corrects with C T attenuation, although there continues to be loss of activity in the apex with evidence of apical re versible ischemia on both attenuation and nonattenuated images. Wall motion shows mild hypokinesis. Ejection fraction recorded at 66%. IMPRESSION: Evidence of reversible ischemia involving the apex. POS: [facility]
[2018-02-07] MEDS ORDERED: Nitroglycerin 0.4 MG TAB (25 Tab Bottle) SL PRN (12:15)
[2018-02-07] MEDS ORDERED: Sodium Chloride 0.9% 1,000 ML IV SCH (19:00)
[2018-02-07] MEDS ORDERED: Communication Order-Pharmacy FS SCH (19:00)
[2018-02-07] MEDS ORDERED: Atorvastatin Calcium 40 MG TAB PO SCH (21:00)
[2018-02-07] MEDS: risperiDONE 1 MG TAB PO SCH (21:35)
[2018-02-07] MEDS: Gabapentin 300 MG CAP PO SCH (21:35)
--- NOTE | 2018-02-07 22:59 | CON ---
DATE OF CONSULTATION: 02/07/2018 HISTORY: Jesusita Morrison is a 47-year-old black female that I evaluated in 2014. She has been hospitalized for chest pain in 06/2010 with normal Cardiolite test. In 01/2011, she was again hospitalized with chest pain reproducible with palpation on the right side of her chest. She was in the ER and discharged from there for chest pain in 10/2011 and 08/2012. Again, in 2013, she was seen in the ER for evaluation of chest pain and was discharged from the ER. In 09/2014, she was again hospitalized for chest discomfort, underwent Lexiscan testing, which revealed no evidence of ischemia. She was again admitted for chest discomfort in 05/2015. With multiple admissions as well as multiple trips to the emergency room, a decision was made to have her undergo cardiac catheterization. This revealed normal coronary arteries and an ejection fraction of 50%-55%. She now is admitted with continual chest discomfort present for 3 days at the time of admission. The pain is sharp in nature, but is not pleuritic. She denies any positional changes in the discomfort. Cardiac enzymes were negative. She underwent Cardiolite testing today, which revealed a questionable area of ischemia at the apex. PAST MEDICAL HISTORY: Hypertension, diabetes, hyperlipidemia, obesity. MEDICATIONS: Albuterol, Cymbalta 120 q.a.m., gabapentin 300 at bedtime, hydrochlorothiazide 12.5 daily, omeprazole 40 b.i.d., Risperdal 1 mg at bedtime. ALLERGIES: None. OPERATIONS: Tubal ligation. SOCIAL HISTORY: She does not smoke or drink. FAMILY HISTORY: Negative for coronary artery disease. REVIEW OF SYSTEMS: Twelve-point review of systems unremarkable. PHYSICAL EXAMINATION: VITAL SIGNS: Blood pressure 133/69 and pulse 72. HEENT: PERRL. NECK: Supple. CHEST: Clear. ABDOMEN: Obese. Normal bowel sounds. No tenderness. EXTREMITIES: Revealed no clubbing, cyanosis, or edema. NEUROLOGIC: Grossly intact. SKIN: Warm and dry. MUSCULOSKELETAL EXAM: Revealed no palpable chest wall tenderness. LABORATORY DATA: EKG is normal. Cardiolite reveals questionable apical ischemia. Hemoglobin 10.3, hematocrit 32.5, white count 7500. Sodium 138, potassium 3.7, chloride 105, carbon dioxide 27, BUN 9, creatinine 0.73. Cholesterol 220, triglycerides 136, LDL 144, HDL 49. Cardiac enzymes are negative x3. TSH is normal. IMPRESSION: 1. Atypical chest discomfort with pain lasting for 3 days and negative cardiac enzymes. 2. Questionable apical ischemia on Cardiolite, probably due to breast attenuation. 3. Normal coronary arteries in 05/2015. 4. Hypertension. 5. Hypercholesterolemia, untreated. 6. Obesity. PLAN: I feel that this is a false positive Cardiolite; however, there is only one way to prove that and this is with coronary angiography. After 2-1/2 years , she certainly may have developed coronary artery disease, especially with her cholesterol as high as it is and not treated. I will start her on atorvastatin 40 at bedtime. She will undergo cardiac catheterization. Risks of this discussed including , myocardial infarction, dye reaction, vascular injury, CVA, transfusion, limb loss, renal loss, etc. Also, risk of intervention with PTCA and stent placement were discussed. These include , myocardial infarction, CABG, restenosis, stent thrombosis, vessel perforation, etc. I am somewhat concerned about her compliance and also her anemia with red blood cell indices that point towards iron deficiency. Therefore, a bare metal stent will be placed if needed. OZ
--- NOTE | 2018-02-08 05:46 | PDOC.FM ---
- Subjective Subjective: No events overnight. Patient states pain has improved slightly to about a 4-5/ 10. She still endorses mild SOB. She will under go cath today with Dr. Mejia. She denies abdominal pain, subjective fever, palpitations, NVD. - Objective MAR Reviewed: Yes Vital Signs & Weight: Vital Signs (12 hours) Temp Pulse Resp BP BP Pulse Ox 02/08/18 03:07 98.2 F 77 18 113/60 95 02/07/18 20:31 98.3 F 61 16 135/74 94 L 02/07/18 20:00 98.3 F 61 16 Weight Weight 107.955 kg I&O: 02/06/18 02/07/18 02/08/18 06:59 06:59 06:59 Intake Total 120 1020 1044 Output Total 150 1925 Balance -30 -905 1044 Result Diagrams: 02/08/18 06:28 02/08/18 06:28 <Sisi Dumont - Last Filed: 02/08/18 11:58> - Objective Vital Signs & Weight: Vital Signs (12 hours) Temp Pulse Resp BP BP Pulse Ox 02/08/18 11:06 97.6 F 66 17 118/67 95 02/08/18 08:40 98.7 F 61 16 02/08/18 07:27 98.7 F 61 16 123/70 95 02/08/18 03:07 98.2 F 77 18 113/60 95 Weight Weight 107.955 kg I&O: 02/07/18 02/08/18 02/09/18 06:59 06:59 06:59 Intake Total 1020 1044 Output Total 1925 Balance -905 1044 Result Diagrams: 02/08/18 06:28 02/08/18 06:28 <Olegario Domingo - Last Filed: 02/08/18 12:15> Phys Exam - Physical Examination Constitutional: NAD resting comfortably HEENT: PERRLA, moist MMs, sclera anicteric Neck: no JVD, supple, full ROM Respiratory: no wheezing, no rales, clear to auscultation bilateral Cardiovascular: RRR, no significant murmur, no rub Gastrointestinal: soft, non-tender, no distention, positive bowel sounds Musculoskeletal: pulses present trace pitting edema Neurological: moves all 4 limbs Psychiatric: normal affect, A&O x 3 Skin: no rash, normal turgor, cap refill <2 seconds <Sisi Dumont - Last Filed: 02/08/18 11:58> Dx/Plan (1) Chest pain Code(s): R07.9 - CHEST PAIN, UNSPECIFIED Status: Active (2) Anxiety Code(s): F41.9 - ANXIETY DISORDER, UNSPECIFIED Status: Chronic (3) Depression Code(s): F32.9 - MAJOR DEPRESSIVE DISORDER, SINGLE EPISODE, UNSPECIFIED Status : Chronic (4) Anemia, iron deficiency Code(s): D50.9 - IRON DEFICIENCY ANEMIA, UNSPECIFIED Status: Chronic (5) GERD (gastroesophageal reflux disease) Code(s): K21.9 - GASTRO-ESOPHAGEAL REFLUX DISEASE WITHOUT ESOPHAGITIS Status: Chronic (6) Hypertension Code(s): I10 - ESSENTIAL (PRIMARY) HYPERTENSION Status: Chronic (7) BAM (obstructive sleep apnea) Code(s): G47.33 - OBSTRUCTIVE SLEEP APNEA (ADULT) (PEDIATRIC) Status: Acute (8) Gastroparesis Code(s): K31.84 - GASTROPARESIS Status: Chronic (9) Obesity Code(s): E66.9 - OBESITY, UNSPECIFIED Status: Chronic (10) Thrombocytosis Status: Chronic (11) Migraine Code(s): G43.909 - MIGRAINE, UNSP, NOT INTRACTABLE, WITHOUT STATUS MIGRAINOSUS Status: Chronic - Plan Plan: 47YO female with PMH of HTN, anxiety/depression, and GERD who presents to the ED with a chief complaint of sharp, stabbing central chest pain for the past 3 days. Chest pain - Stress results showed reversible ischemia in the apex; Cardiology consulted - plan is for cath today. Pt started on atorvastatin 20 HS. - ECG showed NSR. Trop Neg X 3. CXR no acute cardiopulm process. Vitals have been stable. - Will continue tylenol & hydroxyzine PRN for pain and anxiety. - Fasting lipid panel: T, LDL: 144, Choles: 220H, HDL: 49; Will discharge with statin therapy - Cath was negative; will touch base with cardiology to see if patient good to go home Thrombocytosis - Likely 2/ MITCH. Iron studies from [facility] admission showed this and platelet count has been as high as >600 in the past. - Will start on ferrous sulfate BID. Anxiety - Patient is on cymbalta and risperdal at home. - Will resume home meds. - Will also add hydroxyzine as noted above as anxiety may be source of chest pain. Depression - Will resume home meds. GERD - Will resume home meds. Iron deifciency Anemia - H/H mildly low @ 11.6/35 on admission. Pt states she has been anemic before. - Will start on iron supplementation as described above. HTN - Will resume home meds. Asthma - Will resume home meds. BAM - Aware. Patient does not use CPAP at home. Will watch vital signs Obesity - Will counselor at law on importance of diet and exercise. Gastroparesis - Aware. h/o migraine HAs - Will resume home meds. DISPO: likely discharge later today CODE: FULL Case discussed with Jose L <Sisi Dumont - Last Filed: 02/08/18 11:58> Attending Addendum - Attending Addendum Date/Time: 02/08/18 1214 I personally evaluated the patient and discussed the management with Dr. Dumont. I agree with the History, Examination, Assessment and Plan documented above with any addition or exceptions noted below. Patient with normal cath this morning. Anticipate discharge home later today after her bed rest term expires. <Olegario Domingo - Last Filed: 02/08/18 12:15>
[2018-02-08] MEDS: Ferrous Sulfate 325 MG TAB PO SCH (06:17)
[2018-02-08] MEDS: DULoxetine 60 MG CAP PO SCH (06:18)
[2018-02-08] MEDS: Hydrochlorothiazide 25 MG TAB PO SCH (06:18)
[2018-02-08 07:01] LABS: #Eosinphils 0.1 thou/uL (0.0-0.7); #Lymphocytes 1.6 thou/uL (1.20-3.40); #Monocytes 0.4 thou/uL (0.11-0.59); #Neutrophils 6.6 thou/uL (1.40-6.50); %Basophils 0.2 % (0.0-1.0); %Eosinophils 1.3 % (0.0-10.0); %Lymphocytes 18.4 % (21.0-51.0); %Monocytes 4.6 % (0.0-10.0); %Neutrophils 75.6 % (42.0-75.0); Hemoglobin 9.9 g/dL (12.0-16.0); Mean Corpuscular HGB CONC 32.5 g/dL (32.0-36.0); Mean Corpuscular Hemoglobin 24.8 pg (27.0-31.0); Mean Corpuscular Volume 76.5 fL (78.0-98.0); Mean Platelet Volume 6.8 fL (7.4-10.4); Platelet Count 416 thou/uL (130-400); RBC Distribution Width 14.7 % (11.5-14.5); Red Blood Cell (RBC) Count 3.97 mill/uL (4.20-5.40); White Blood Cell (WBC) Count 8.7 thou/uL (4.8-10.8)
[2018-02-08 07:13] LABS: Anion Gap 10 mmol/L (10-20); BUN (Urea Nitrogen) 9 mg/dL (7.0-18.7); Calc. Creatinine Clearance 160 mL/min (70-130); Calcium 8.9 mg/dL (7.8-10.44); Carbon Dioxide 25 mmol/L (22-29); Chloride 105 mmol/L (98-107); Estimated GFR-MDRD Greater than 90; Glucose 92 mg/dL (70-105); Potassium 3.7 mmol/L (3.5-5.1); Sodium 136 mmol/L (136-145)
[2018-02-08] MEDS ORDERED: Fentanyl 100 MCG/2 ML VIAL ONE (08:47)
[2018-02-08] MEDS ORDERED: Midazolam HCl 2 mg/2 ml Vial ONE (08:47)
[2018-02-08] MEDS ORDERED: Heparin 10,000 UNITS/1 ML VIAL ONE (09:19)
[2018-02-08] MEDS ORDERED: Protamine Sulfate 50 MG/5 ML VIAL ONE (09:24)
[2018-02-08] MEDS ORDERED: Acetaminophen/Codeine 30-300mg Tablet PO PRN ×2 (09:37)
[2018-02-08] MEDS ORDERED: traMADol HCl 50 MG TAB PO PRN (09:37)
[2018-02-08] MEDS ORDERED: Nitroglycerin 0.4 MG TAB (25 Tab Bottle) SL PRN (09:37)
[2018-02-08] MEDS ORDERED: Sodium Chloride 0.9% 1,000 ML IV SCH (09:38)
[2018-02-08] MEDS ORDERED: Sodium Chloride 0.9% 200 ML IV PRN (09:45)
[2018-02-08] MEDS ORDERED: Iopamidol 370 76% 100 ML VIAL ONE (11:00)
[2018-02-08] MEDS ORDERED: Iopamidol 370 76% 50 ML VIAL FS ONE (11:00)
[2018-02-08 16:35] VITALS: BP 114/67; TEMP 98.1
--- NOTE | 2018-02-09 13:52 | DIS-2 ---
DATE OF ADMISSION: 02/05/2018 DATE OF DISCHARGE: 02/08/2018 RESIDENT: Sisi Dumont MD ADMITTING ATTENDING: Dr. Wilmer Phelps DISCHARGE ATTENDING: Dr. Olegario Domingo CONSULTATIONS: Cardiology. PROCEDURES: 1. Chest x-ray on 02/05/2018 showed no cardiopulmonary abnormalities. 2. Nuclear medicine stress test on 02/07/20 showed reversible ischemia in the apex. 3. label sewer procedure on 02/08/18 showed no ischemia noted. PRIMARY DIAGNOSIS: Atypical chest pain. SECONDARY DIAGNOSES: Anxiety, depression, iron-deficiency anemia, gastroesophageal reflux disease, hypertension, obstructive sleep apnea, gastroparesis, obesity, thrombocytosis, migraine. DISCHARGE MEDICATIONS: 1. Ferrous sulfate (Feosol) 325 mg oral twice daily with meals. 2. Atorvastatin calcium 20 mg oral daily. 3. Hydrochlorothiazide 12.5 mg oral daily. 4. Duloxetine HCL (Cymbalta) 120 mg oral every morning. 5. Risperidone (Risperdal) 1 mg oral at bedtime. 6. Gabapentin (Neurontin) 300 mg oral at bedtime. 7. Omeprazole 40 mg oral twice daily. 8. Albuterol sulfate (ProAir) 2 puffs oral as needed. DISCONTINUED MEDICATIONS: None. HISTORY OF PRESENT ILLNESS/HOSPITAL COURSE: The patient presented to the ED with chest pain that have been present for about 3 days. Her initial troponins and EKG were negative for ischemia. It was thought that the chest pain may be secondary to anxiety versus gastroesophageal reflux disease. She was admitted to the hospital for ACS workup. The patient received nitro and Protonix and her chest pain improved throughout her stay. She had a previous stress test in 2013 that was normal. Another stress test was performed on 02/07/2018 which found reversible ischemia present in the apex. At this point, Cardiology was called for the patient. Dr. Mejia thought the stress test may be a false positive and decided to proceed with a cath procedure to know for sure. The cath procedure on 2017 was negative for any ischemia and no stents were placed. He recommended starting the patient on a statin as her cholesterol was found to be elevated. The patient noted that her pain and shortness of breath had improved by the end of her stay. She was encouraged to follow up with her PCP. DISPOSITION: Stable. DISCHARGE INSTRUCTIONS: 1. Location: Home. 2. Diet: Heart healthy. 3. Activities: Ad bc. 4. Followup: Follow up with PCP within 1 week. OZ
--- NOTE | 2018-02-12 13:49 | EKG ---
Test Reason : CP Blood Pressure : / mmHG Vent. Rate : 085 BPM Atrial Rate : 085 BPM P-R Int : 138 ms QRS Dur : 072 ms QT Int : 382 ms P-R-T Axes : 051 -04 016 degrees QTc Int : 454 ms Normal sinus rhythm T wave inversion III Normal ECG Confirmed by NORMA GARZA ([id number]), editor in chief newspaper DORIS ESCALERA ([id number]) on 02/12/2018 1:49:26 PM Referred By: KAYLA Confirmed By:NORMA GARZA
== END 2018-02-08 17:57 | disposition home or self-care (01) ==
LOC: ERS 17:39 → 2SW 23:05
PROVIDERS: ADMIT Family Medicine; ATTEND Family Medicine
PROC: 4A023N7 Measurement of Cardiac Sampling and Pressure, Left Heart, Percutaneous Approach (ICD-10-PCS; principal; 2018-02-08)
PROC: B2111ZZ Fluoroscopy of Multiple Coronary Arteries using Low Osmolar Contrast (ICD-10-PCS; 2018-02-08)
DX: R07.89 Other chest pain (principal); K21.9 Gastro-esophageal reflux disease without esophagitis; F41.8 Other specified anxiety disorders; I10 Essential (primary) hypertension; G43.909 Migraine, unspecified, not intractable, without status migrainosus; K31.84 Gastroparesis; D50.9 Iron deficiency anemia, unspecified; G47.33 Obstructive sleep apnea (adult) (pediatric); D47.3 Essential (hemorrhagic) thrombocythemia; E78.00 Pure hypercholesterolemia, unspecified; E66.9 Obesity, unspecified; Z68.39 Body mass index [BMI] 39.0-39.9, adult; Z79.52 Long term (current) use of systemic steroids; Z79.899 Other long term (current) drug therapy
CPT/HCPCS: 36415; 71045; 76705; 78452; 80048; 80053; 80061; 80306; 81003; 82553; 83690; 83735; 84100; 84443; 84484; 85025; 85347; 85379; 93005; 93017; 93458; 94760; 96361; 96372; 96374; 96375; 96376; 99152; 99153; A9500; C1769; G0378; J1200; J1644; J1650; J1885; J2250; J2270; J2720; J2765; J2785; J3010

== ENCOUNTER 2018-04-05 16:19 | Emergency (ER) | payer OTHER, SELFPAY ==
[~2018-04-05 16:19] MED LIST: ISOVUE-370 76%-LOCM 1 ML ONE
[2018-04-05 16:40] LABS: #Basophils 0.1 thou/uL (0.0-0.2); #Eosinphils 0.2 thou/uL (0.0-0.7); #Lymphocytes 2.1 thou/uL (1.20-3.40); #Monocytes 0.4 thou/uL (0.11-0.59); #Neutrophils 8.9 thou/uL (1.40-6.50); %Basophils 0.5 % (0.0-1.0); %Eosinophils 1.9 % (0.0-10.0); %Lymphocytes 17.7 % (21.0-51.0); %Monocytes 3.6 % (0.0-10.0); %Neutrophils 76.4 % (42.0-75.0); Mean Corpuscular Hemoglobin 24.1 pg (27.0-31.0); Mean Corpuscular Volume 75.4 fL (78.0-98.0); Mean Platelet Volume 6.7 fL (7.4-10.4); Platelet Count 622 thou/uL (130-400); RBC Distribution Width 14.9 % (11.5-14.5); Red Blood Cell (RBC) Count 4.99 mill/uL (4.20-5.40); White Blood Cell (WBC) Count 11.7 thou/uL (4.8-10.8)
[2018-04-05] MEDS ORDERED: Meclizine HCl 25 MG TAB ONE (16:58)
[2018-04-05] MEDS ORDERED: Acetaminophen 325 MG TAB ONE (16:58)
[2018-04-05 17:01] LABS: ALT (SGPT) 7 U/L (8-55); AST (SGOT) 13 U/L (5-34); Albumin 3.9 g/dL (3.5-5.0); Alkaline Phosphatase 79 U/L (40-150); Anion Gap 11 mmol/L (10-20); BUN (Urea Nitrogen) 8 mg/dL (7.0-18.7); Bilirubin, Total 0.3 mg/dL (0.2-1.2); CK (CPK) 49 U/L (29-168); Calc. Creatinine Clearance 0 mL/min (70-130); Calcium 9.4 mg/dL (7.8-10.44); Carbon Dioxide 25 mmol/L (22-29); Chloride 103 mmol/L (98-107); Estimated GFR-MDRD 87; Globulin 4.8 g/dL (2.4-3.5); Glucose 109 mg/dL (70-105); Lipase 32 U/L (8-78); Potassium 3.7 mmol/L (3.5-5.1); Protein, Total 8.7 g/dL (6.0-8.3); Sodium 135 mmol/L (136-145)
[2018-04-05 17:04] LABS: CKMB 0.5 ng/mL (0-6.6); Troponin I Less than 0.010 ng/mL (< 0.028)
--- NOTE | 2018-04-05 18:35 | RAD ---
FRONTAL VIEW CHEST: 04/05/18 COMPARISON: 02/05/18 INDICATION: Emergency exam, dizziness, intermittent vision issues. FINDINGS: There is no evidence of consolidation, effusion or discrete pneumothorax. The cardiac silhouette is s table, accentuated by portable technique. IMPRESSION: No focal consolidation. POS: [facility]
--- NOTE | 2018-04-05 19:47 | CT ---
CT ARTERIOGRAM HEAD WITH IV CONTRAST AND 3D MIP IMAGING CT BRAIN WITH AND WITHOUT IV CONTRAST: 04/05/18 HISTORY: Altered mental status. Dizziness. Vision abnormality. FINDINGS: There is no evidence of acute intracranial hemorrhage or infarct. Ventricles appear normal in size, s hape and position. There is no mass effect, shift of midline structures or abnormal areas of contrast enhancement. [place] is intact. Good flow throughout each cerebral system. No focal aneurysm or embolus. IMPRESSION: No acute intracranial abnormalities are demonstrated. POS: [facility]
== END 2018-04-05 19:38 | disposition home or self-care (01) ==
LOC: ERS 16:19
DX: R51 Headache (principal); R53.1 Weakness; F41.9 Anxiety disorder, unspecified; F32.9 Major depressive disorder, single episode, unspecified; K21.9 Gastro-esophageal reflux disease without esophagitis; E66.9 Obesity, unspecified; G47.30 Sleep apnea, unspecified; D64.9 Anemia, unspecified; I10 Essential (primary) hypertension; Z79.899 Other long term (current) drug therapy
CPT/HCPCS: 70496; 71045; 80053; 82550; 82553; 83690; 84484; 85025; 93005; 96360; 96361

== ENCOUNTER 2018-05-23 14:46 | Emergency (ER) | payer SELFPAY ==
[~2018-05-23 14:46] MED LIST changes: -ISOVUE-370 76%-LOCM 1 ML ONE; +Iopamidol 370 76% 100 ML VIAL ONE
[2018-05-23 15:20] LABS: #Basophils 0.1 thou/uL (0.0-0.2); #Eosinphils 0.1 thou/uL (0.0-0.7); #Lymphocytes 2.1 thou/uL (1.20-3.40); #Monocytes 0.6 thou/uL (0.11-0.59); #Neutrophils 7.4 thou/uL (1.40-6.50); %Basophils 0.7 % (0.0-1.0); %Eosinophils 1.1 % (0.0-10.0); %Lymphocytes 20.6 % (21.0-51.0); %Monocytes 5.7 % (0.0-10.0); Hemoglobin 11.6 g/dL (12.0-16.0); Mean Corpuscular HGB CONC 32.7 g/dL (32.0-36.0); Mean Corpuscular Hemoglobin 24.2 pg (27.0-31.0); Mean Corpuscular Volume 74.1 fL (78.0-98.0); Mean Platelet Volume 6.9 fL (7.4-10.4); Platelet Count 600 thou/uL (130-400); RBC Distribution Width 15.2 % (11.5-14.5); Red Blood Cell (RBC) Count 4.78 mill/uL (4.20-5.40); White Blood Cell (WBC) Count 10.3 thou/uL (4.8-10.8)
[2018-05-23 15:36] LABS: Anisocytosis SLIGHT = 6-15 cells (100X) (0-5/hpf); Hypochromia SLIGHT = 6-15 cells (100X) (0-5/hpf); MDiff Complete? YES; Microcytosis SLIGHT = 6-15 cells (100X) (0-5/hpf); PLT Morphology Comment Appears Increased; Polychromasia SLIGHT = 2-3 cells (100X) (0-2/hpf)
[2018-05-23 15:37] LABS: ALT (SGPT) 8 U/L (8-55); AST (SGOT) 12 U/L (5-34); Albumin 3.7 g/dL (3.5-5.0); Alkaline Phosphatase 77 U/L (40-150); Anion Gap 11 mmol/L (10-20); BUN (Urea Nitrogen) 7 mg/dL (7.0-18.7); Bilirubin, Total 0.2 mg/dL (0.2-1.2); Calc. Creatinine Clearance 0 mL/min (70-130); Calcium 9.6 mg/dL (7.8-10.44); Carbon Dioxide 27 mmol/L (22-29); Chloride 99 mmol/L (98-107); Estimated GFR-MDRD 88; Glucose 97 mg/dL (70-105); Lipase 20 U/L (8-78); Potassium 3.4 mmol/L (3.5-5.1); Protein, Total 8.7 g/dL (6.0-8.3); Sodium 134 mmol/L (136-145)
[2018-05-23 15:47] LABS: Bilirubin Negative (Negative); Blood, Urine Negative (Negative); Clarity CLEAR (Clear); Glucose, Urine (Dipstick) Negative (Negative); Leukocyte Negative (Negative); Nitrite Negative (Negative); Protein, Urine (Dipstick) Negative (Neg-Trace); Specific Gravity, Urine 1.007 (1.002-1.036)
[2018-05-23 15:50] LABS: Pregnancy Test - Urine (BHCG) Negative (Negative); Pregu Control Background? CLEAR/WHITE (CLR/WHITE); Pregu Control Bar Appear? YES (CONTROL BAR); Specific Gravity 1.007 (1.002-1.036)
[2018-05-23] MEDS ORDERED: Dicyclomine 20 MG TAB ONE (18:26)
[2018-05-23] MEDS ORDERED: Ketorolac Tromethamine 30 MG/ML VIAL ONE (18:26)
[2018-05-23] MEDS ORDERED: Fluconazole 100 MG TAB PO SCH (18:45)
--- NOTE | 2018-05-23 21:00 | CT ---
CT ABDOMEN AND PELVIS PERFORMED WITH CONTRAST ENHANCEMENT: HISTORY: Diffuse lower abdominal pain. COMPARISON: 10/05/2016 FINDINGS: ABDOMEN: The lung bases are clear of any infiltrative process. The liver shows a slightly lobulated, hypodense lesion involving the right lobe. It has CT Hounsfiel d unit numbers that are suggestive of a cyst. It was present on the previous examination and is felt to be relatively stable in size. Its maximum dimension is 3.7 cm. The spleen is within normal limi ts. Small hypodensities seen within the spleen on the prior examination is difficult to appreciate o n this study. The pancreas and gallbladder regions appear unremarkable, the gallbladder being somewh at contracted. The right and left adrenal glands and the right and left kidneys are normal in size. A small hypoden sity involving the mid to lower pole of the right kidney is stable and most likely a small cyst. The re is no significant periaortic or mesenteric lymphadenopathy. There are a few small nodes in the il eocolic region, which are nonspecific. PELVIS: The appendix is normal. No inflammatory change. There is a cystic appearing structure invo lving the right ovary, measuring 2.8 cm. No free fluid demonstrated. No inflammatory process. IMPRESSION: 1. Hepatic cyst, stable. 2. Stable right renal cyst. 3. Small fat-containing periumbilical hernia. 4. Moderate hiatal hernia, unchanged. 5. A 2.8 cm right ovarian cyst. POS: [facility]
[2018-05-24 23:03] LABS: Chlamydia by PCR Not Detected (NotDetected); GC by PCR Not Detected (NotDetected)
== END 2018-05-23 20:40 | disposition home or self-care (01) ==
LOC: ERS 14:46
DX: N83.201 Unspecified ovarian cyst, right side (principal); I10 Essential (primary) hypertension; E66.9 Obesity, unspecified; J45.909 Unspecified asthma, uncomplicated; K21.9 Gastro-esophageal reflux disease without esophagitis; D64.9 Anemia, unspecified; G47.30 Sleep apnea, unspecified; G43.909 Migraine, unspecified, not intractable, without status migrainosus; F41.9 Anxiety disorder, unspecified; F32.9 Major depressive disorder, single episode, unspecified; Z79.899 Other long term (current) drug therapy
CPT/HCPCS: 36415; 74177; 80053; 81003; 81025; 83690; 85025; 87480; 87491; 87510; 87591; 87660; 96361; 96374; J1885

== ENCOUNTER 2018-08-13 15:34 | Emergency (ER) | payer SELFPAY ==
[2018-08-13 16:07] LABS: #Eosinphils 0.1 thou/uL (0.0-0.7); #Lymphocytes 2.4 thou/uL (1.20-3.40); #Monocytes 0.6 thou/uL (0.11-0.59); #Neutrophils 6.8 thou/uL (1.40-6.50); %Basophils 0.3 % (0.0-1.0); %Eosinophils 1.2 % (0.0-10.0); %Lymphocytes 23.8 % (21.0-51.0); %Neutrophils 68.7 % (42.0-75.0); Hemoglobin 11.2 g/dL (12.0-16.0); Mean Corpuscular HGB CONC 31.5 g/dL (32.0-36.0); Mean Corpuscular Hemoglobin 23.9 pg (27.0-31.0); Mean Corpuscular Volume 75.9 fL (78.0-98.0); Mean Platelet Volume 6.8 fL (7.4-10.4); Platelet Count 566 thou/uL (130-400); RBC Distribution Width 15.2 % (11.5-14.5); Red Blood Cell (RBC) Count 4.69 mill/uL (4.20-5.40); White Blood Cell (WBC) Count 9.9 thou/uL (4.8-10.8)
--- NOTE | 2018-08-13 16:20 | RAD ---
CHEST ONE VIEW: 08/13/18 HISTORY: Chest pain. COMPARISON: Radiograph 04/05/18. FINDINGS: Lungs are clear. No pneumothorax or effusion. The cardiac silhouette and mediastinal contours are nor mal. Calcific tendinosis left rotator cuff. IMPRESSION: No acute intrathoracic abnormality POS: [facility]
[2018-08-13 16:31] LABS: ALT (SGPT) 12 U/L (8-55); AST (SGOT) 13 U/L (5-34); Albumin 4.1 g/dL (3.5-5.0); Alkaline Phosphatase 74 U/L (40-150); Anion Gap 13 mmol/L (10-20); BUN (Urea Nitrogen) 11 mg/dL (7.0-18.7); Bilirubin, Total 0.3 mg/dL (0.2-1.2); Calc. Creatinine Clearance 0 mL/min (70-130); Calcium 9.9 mg/dL (7.8-10.44); Carbon Dioxide 29 mmol/L (22-29); Chloride 101 mmol/L (98-107); Estimated GFR-MDRD 77; Globulin 4.7 g/dL (2.4-3.5); Glucose 94 mg/dL (70-105); Potassium 3.4 mmol/L (3.5-5.1); Protein, Total 8.8 g/dL (6.0-8.3); Sodium 140 mmol/L (136-145)
--- NOTE | 2018-08-13 17:00 | CT ---
CT HEAD WITHOUT CONTRAST 08/13/18 HISTORY: Left hand and arm pain. COMPARISON: 06/25/17 FINDINGS: No parenchymal hemorrhage. No extra-axial hematoma. No midline shift. Basilar cisterns are patent. Br ain volume, age appropriate. Cortical suarez-white matter differentiation is preserved. Ventricle and sulci are patent and symmetric. Intact calvarium. Adequate aeration of the sinuses and mastoid air cells. IMPRESSION: No acute intracranial process. POS: [facility]
== END 2018-08-13 17:23 | disposition home or self-care (01) ==
LOC: ERS 15:34
DX: M54.12 Radiculopathy, cervical region (principal); M25.512 Pain in left shoulder; J45.909 Unspecified asthma, uncomplicated; K21.9 Gastro-esophageal reflux disease without esophagitis; G47.30 Sleep apnea, unspecified; G43.909 Migraine, unspecified, not intractable, without status migrainosus; F41.9 Anxiety disorder, unspecified; F32.9 Major depressive disorder, single episode, unspecified; Z79.899 Other long term (current) drug therapy
CPT/HCPCS: 70450; 71045; 80053; 84484; 85025; 93005

== ENCOUNTER 2018-09-02 06:08 | Emergency (ER) | payer SELFPAY ==
[2018-09-02] MEDS ORDERED: methylPREDNISolone Sod Succ/PF 125 MG/2 ML VIAL ONE (06:38)
[2018-09-02 07:06] LABS: BHCG - Serum Negative (NEGATIVE); Pregs Control Background? CLEAR/WHITE (CLR/WHITE); Pregs Control Bar Appear? YES (CONTROL BAR)
[2018-09-02] MEDS ORDERED: Nitroglycerin 2% Ointment 1 INCH/1 GM Packet ONE (07:07)
[2018-09-02] MEDS ORDERED: Aspirin 325 MG TAB ONE (07:07)
[2018-09-02 07:11] LABS: ALT (SGPT) 7 U/L (8-55); AST (SGOT) 12 U/L (5-34); Albumin 3.5 g/dL (3.5-5.0); Alkaline Phosphatase 69 U/L (40-150); Anion Gap 12 mmol/L (10-20); BUN (Urea Nitrogen) 11 mg/dL (7.0-18.7); Bilirubin, Total 0.2 mg/dL (0.2-1.2); Calc. Creatinine Clearance 0 mL/min (70-130); Carbon Dioxide 27 mmol/L (22-29); Chloride 103 mmol/L (98-107); Estimated GFR-MDRD Greater than 90; Globulin 4.1 g/dL (2.4-3.5); Glucose 120 mg/dL (70-105); Lipase 33 U/L (8-78); Potassium 3.6 mmol/L (3.5-5.1); Protein, Total 7.6 g/dL (6.0-8.3); Sodium 138 mmol/L (136-145)
[2018-09-02 07:13] LABS: Hemoglobin 10.9 g/dL (12.0-16.0); Mean Corpuscular Hemoglobin 23.6 pg (27.0-31.0); Mean Corpuscular Volume 73.9 fL (78.0-98.0); Mean Platelet Volume 6.7 fL (7.4-10.4); Platelet Count 502 thou/uL (130-400); RBC Distribution Width 14.9 % (11.5-14.5); Red Blood Cell (RBC) Count 4.61 mill/uL (4.20-5.40)
[2018-09-02 07:39] LABS: #Basophils 0.1 thou/uL (0.0-0.2); #Eosinphils 0.1 thou/uL (0.0-0.7); #Lymphocytes 1.7 thou/uL (1.20-3.40); #Monocytes 0.4 thou/uL (0.11-0.59); #Neutrophils 5.7 thou/uL (1.40-6.50); %Basophils 0.7 % (0.0-1.0); %Eosinophils 1.7 % (0.0-10.0); %Lymphocytes 21.1 % (21.0-51.0); %Monocytes 5.2 % (0.0-10.0); %Neutrophils 71.3 % (42.0-75.0); RBC Morphology Normal
--- NOTE | 2018-09-02 07:39 | RAD ---
CHEST 1 VIEW: HISTORY: Chest pain and shortness of breath. COMPARISON: 08/13/2018. FINDINGS: Heart size is within normal limits. Monitor leads overlie the chest. No confluent pneumonia, overt edema, or pleural effusion. IMPRESSION: No acute intrathoracic disease. POS: [facility]
== END 2018-09-02 08:23 | disposition home or self-care (01) ==
LOC: ERS 06:08
DX: R07.9 Chest pain, unspecified (principal); I10 Essential (primary) hypertension; E66.9 Obesity, unspecified; J45.909 Unspecified asthma, uncomplicated; K21.9 Gastro-esophageal reflux disease without esophagitis; D64.9 Anemia, unspecified; G47.30 Sleep apnea, unspecified; G43.909 Migraine, unspecified, not intractable, without status migrainosus; F41.9 Anxiety disorder, unspecified; F32.9 Major depressive disorder, single episode, unspecified; Z79.899 Other long term (current) drug therapy
CPT/HCPCS: 36415; 71045; 80053; 83690; 84484; 84703; 85025; 85379; 93005; 94640; 96361; 96374; J2930; J7620

== ENCOUNTER 2018-11-10 12:39 | Emergency (ER) | payer SELFPAY ==
[2018-11-10 13:22] LABS: Hemoglobin 11.1 g/dL (12.0-16.0); Mean Corpuscular Hemoglobin 23.6 pg (27.0-31.0); Mean Corpuscular Volume 73.7 fL (78.0-98.0); Mean Platelet Volume 6.7 fL (7.4-10.4); Platelet Count 562 thou/uL (130-400); RBC Distribution Width 15.1 % (11.5-14.5); Red Blood Cell (RBC) Count 4.69 mill/uL (4.20-5.40); White Blood Cell (WBC) Count 10.2 thou/uL (4.8-10.8)
[2018-11-10 13:41] LABS: #Eosinphils 0.2 thou/uL (0.0-0.7); #Lymphocytes 2.1 thou/uL (1.20-3.40); #Monocytes 0.6 thou/uL (0.11-0.59); #Neutrophils 7.3 thou/uL (1.40-6.50); %Basophils 0.2 % (0.0-1.0); %Eosinophils 2.1 % (0.0-10.0); %Lymphocytes 20.9 % (21.0-51.0); %Monocytes 5.5 % (0.0-10.0); %Neutrophils 71.3 % (42.0-75.0); Anisocytosis SLIGHT = 6-15 cells (100X) (0-5/hpf); Hypochromia SLIGHT = 6-15 cells (100X) (0-5/hpf); MDiff Complete? YES; Microcytosis SLIGHT = 6-15 cells (100X) (0-5/hpf); Platelet Morphology Comment Appears Increased
[2018-11-10 13:45] LABS: Bilirubin Negative (Negative); Blood, Urine Negative (Negative); Clarity CLOUDY (Clear); Glucose, Urine (Dipstick) Negative (Negative); Leukocyte Moderate (Negative); Nitrite Negative (Negative); Protein, Urine (Dipstick) Negative (Neg-Trace); Specific Gravity, Urine 1.012 (1.002-1.036); Urobilinogen 0.2 mg/dL (0.2-1.0)
[2018-11-10 13:47] LABS: Bacteria/HPF 1+ HPF (None Seen); Hyaline Casts/LPF 0-3 HYALINE CAST LPF (0-3 Hyaline); Pathc Cast-AUWi Flag 0.95 (0-2.49); WBC/HPF 21-50 HPF (0-3)
[2018-11-10 13:55] LABS: Amphetamine Not Detected (NotDetected); Barbiturates Screen Not Detected (NotDetected); Benzodiazepine Screen Not Detected (NotDetected); Cocaine Metabolite Screen Not Detected (NotDetected); Medtox Control Line Valid? VALID (VALID); Medtox Reader # READER 1; Methadone Not Detected (NotDetected); Methamphetamine Not Detected (NotDetected); Opiate Screen Not Detected (NotDetected); Oxycodone Screen Not Detected (NotDetected); Phencyclidine (PCP) Not Detected (NotDetected); THC/Cannabinoid Screen Not Detected (NotDetected); Tricyclic Screen Not Detected (NotDetected)
[2018-11-10 13:55] LABS: ALT (SGPT) 11 U/L (8-55); AST (SGOT) 16 U/L (5-34); Acetaminophen Less than 6.0 mcg/mL (10.0-30.0); Alcohol Less than 10 mg/dL (Less than 10); Alkaline Phosphatase 71 U/L (40-150); Anion Gap 12 mmol/L (10-20); BUN (Urea Nitrogen) 8 mg/dL (7.0-18.7); Bilirubin, Total 0.5 mg/dL (0.2-1.2); Calc. Creatinine Clearance 0 mL/min (70-130); Calcium 9.8 mg/dL (7.8-10.44); Carbon Dioxide 23 mmol/L (22-29); Chloride 104 mmol/L (98-107); Estimated GFR-MDRD 90; Globulin 4.8 g/dL (2.4-3.5); Glucose 92 mg/dL (70-105); Lipase 35 U/L (8-78); Potassium 3.4 mmol/L (3.5-5.1); Protein, Total 8.8 g/dL (6.0-8.3); Salicylate Less than 8.0 mg/dL (15.0-30.0); Sodium 136 mmol/L (136-145)
[2018-11-10] MEDS ORDERED: Fentanyl 100 MCG/2 ML VIAL ONE (14:27)
--- NOTE | 2018-11-10 15:19 | ULT ---
Exam: Right upper quadrant ultrasound: HISTORY: Right upper quadrant abdominal pain COMPARISON: 02/05/2018 FINDINGS: Liver: There is increased echogenicity of the liver again seen suggesting diffuse fatty infiltration. There is a slightly lobulated anechoic cystic structure seen within the posterior segment right hepatic lobe measuring 2.9 cm demonstrating posterior acoustic enhancement and findings suggestive of a hepatic cyst. Stable compared to CT exam 2018. The liver is enlarged in craniocaudal dimensions measuring 20 cm. This is also a stable finding. Gallbladder: No evidence of gallbladder calculi, gallbladder wall thickening, or pericholecystic flui d. Common bile duct: The common duct is normal in caliber measuring 0.4 cm in diameter. Pancreas: Mostly obscured but where visualized which is grossly normal sonographic appearance. Right kidney: Right kidney demonstrates a normal sonographic appearance. The right kidney measures 1 0.6 cm in length. IVC: The visualized IVC demonstrates a normal sonographic appearance. IMPRESSION: 1. Hepatomegaly with fatty infiltration of the liver. 2. Right hepatic lobe cyst. 3. No gallbladder calculi are seen, and the common duct is normal in caliber.
[2018-11-10 15:55] LABS: BHCG - Serum Negative (NEGATIVE); Pregs Control Background? CLEAR/WHITE (CLR/WHITE); Pregs Control Bar Appear? YES (CONTROL BAR)
== END 2018-11-10 16:17 | disposition home or self-care (01) ==
LOC: ERS 12:39
DX: N39.0 Urinary tract infection, site not specified (principal); R42 Dizziness and giddiness; E66.9 Obesity, unspecified; J45.909 Unspecified asthma, uncomplicated; K21.9 Gastro-esophageal reflux disease without esophagitis; D64.9 Anemia, unspecified; G47.30 Sleep apnea, unspecified; G43.909 Migraine, unspecified, not intractable, without status migrainosus; F41.9 Anxiety disorder, unspecified; F32.9 Major depressive disorder, single episode, unspecified; Z79.899 Other long term (current) drug therapy
CPT/HCPCS: 36415; 76705; 80053; 80306; 80307; 81003; 81015; 83690; 84484; 84703; 85025; 87086; 93005; 96361; 96374; J3010

== ENCOUNTER 2019-04-25 13:06 | Emergency (ER) | payer SELFPAY ==
[2019-04-25 14:17] LABS: Bilirubin Negative (Negative); Blood, Urine Negative (Negative); Clarity Clear (Clear); Glucose, Urine (Dipstick) Normal (Negative); Leukocyte Negative Leu/uL (Negative); Nitrite Negative (Negative); Protein, Urine (Dipstick) Negative (Neg-Trace); Urobilinogen Normal mg/dL (Less than 2)
[2019-04-25 14:19] LABS: Pregnancy Test - Urine (BHCG) Negative (Negative); Pregu Control Background? CLEAR/WHITE (CLR/WHITE); Pregu Control Bar Appear? YES (CONTROL BAR); Specific Gravity 1.008 (1.002-1.036)
== END 2019-04-25 15:30 | disposition home or self-care (01) ==
LOC: ERS 13:06
DX: R53.1 Weakness (principal); K21.9 Gastro-esophageal reflux disease without esophagitis; K31.84 Gastroparesis; D64.9 Anemia, unspecified; F32.9 Major depressive disorder, single episode, unspecified; F41.9 Anxiety disorder, unspecified; G47.30 Sleep apnea, unspecified; E66.9 Obesity, unspecified; Z79.899 Other long term (current) drug therapy
CPT/HCPCS: 36416; 81003; 81025; 93005

== ENCOUNTER 2019-08-14 10:17 | Outpatient (CLI) | payer OTHER ==
--- NOTE | 2019-08-14 11:20 | RAD ---
LUMBAR SPINE SERIES 3 VIEWS: HISTORY: Low back pain. FINDINGS: Vertebral bodies are normal in height. Disk spaces all appear well preserved. Some degenerative fac et changes at the L5-S1 level. Pedicles appear intact. IMPRESSION: Very mild arthritic changes of the lower lumbar spine. POS: [facility]
== END 2019-08-14 10:18 | disposition home or self-care (01) ==
LOC: BICRAD 10:17
PROVIDERS: ATTEND Internal Medicine
DX: Z02.71 Encounter for disability determination (principal); M46.96 Unspecified inflammatory spondylopathy, lumbar region
CPT/HCPCS: 72100

== ENCOUNTER 2021-02-09 12:19 | Emergency (ER) | payer OTHER, SELFPAY ==
[2021-02-09 14:33] LABS: #Basophils 0.1 thou/uL (0.0-0.2); #Eosinphils 0.2 thou/uL (0.0-0.7); #Lymphocytes 2.1 thou/uL (1.20-3.40); #Monocytes 0.5 thou/uL (0.11-0.59); #Neutrophils 7.7 thou/uL (1.40-6.50); %Basophils 0.6 % (0.0-1.0); %Eosinophils 1.7 % (0.0-10.0); %Lymphocytes 20.1 % (21.0-51.0); %Neutrophils 72.6 % (42.0-75.0); Hemoglobin 13.5 g/dL (12.0-16.0); Mean Corpuscular HGB CONC 33.8 g/dL (32.0-36.0); Mean Corpuscular Hemoglobin 30.1 pg (27.0-31.0); Mean Platelet Volume 6.8 fL (7.4-10.4); Platelet Count 413 thou/uL (130-400); RBC Distribution Width 12.3 % (11.5-14.5); White Blood Cell (WBC) Count 10.6 thou/uL (4.8-10.8)
[2021-02-09 14:45] LABS: Bilirubin Negative (Negative); Blood, Urine Negative (Negative); Clarity Clear (Clear); Glucose, Urine (Dipstick) Normal (Negative); Ketone, Urine Negative (Negative); Leukocyte 75 Leu/uL (Negative); Nitrite Negative (Negative); Protein, Urine (Dipstick) Negative (Neg-Trace); RBC/HPF 0-3 HPF (0-3); Specific Gravity, Urine 1.006 (1.002-1.036); Squamous Epithelial 0-3 HPF (0-3); Urobilinogen Normal mg/dL (Less than 2); WBC/HPF 0-3 HPF (0-3); pH, Urine 5.5 (5.0-9.0)
[2021-02-09 14:46] LABS: Bacteria/HPF 1+ HPF (None Seen)
[2021-02-09 14:54] LABS: ALT (SGPT) 12 U/L (8-55); AST (SGOT) 12 U/L (5-34); Albumin 3.9 g/dL (3.5-5.0); Alkaline Phosphatase 77 U/L (40-110); Anion Gap 12 mmol/L (10-20); BUN (Urea Nitrogen) 8 mg/dL (7.0-18.7); Bilirubin, Total 0.5 mg/dL (0.2-1.2); Calc. Creatinine Clearance 0 mL/min (70-130); Calcium 9.8 mg/dL (7.8-10.44); Carbon Dioxide 27 mmol/L (22-29); Chloride 103 mmol/L (98-107); Globulin 4.2 g/dL (2.4-3.5); Glucose 89 mg/dL (70-105); Lipase 14 U/L (8-78); Potassium 4.1 mmol/L (3.5-5.1); Protein, Total 8.1 g/dL (6.0-8.3); Sodium 138 mmol/L (136-145)
== END 2021-02-09 15:50 | disposition home or self-care (01) ==
LOC: ERS 12:19
DX: N39.0 Urinary tract infection, site not specified (principal); N12 Tubulo-interstitial nephritis, not specified as acute or chronic; I10 Essential (primary) hypertension; J45.909 Unspecified asthma, uncomplicated; K21.9 Gastro-esophageal reflux disease without esophagitis; D64.9 Anemia, unspecified; G47.30 Sleep apnea, unspecified; E66.9 Obesity, unspecified; Z68.39 Body mass index [BMI] 39.0-39.9, adult
CPT/HCPCS: 36415; 80053; 81003; 81015; 83690; 85025; 93005

== ENCOUNTER 2023-01-13 16:49 | Emergency (ER) | payer SELFPAY ==
[2023-01-13 17:42] LABS: #Eosinphils 0.2 thou/uL (0.0-0.7); #Monocytes 0.8 thou/uL (0.11-0.59); #Neutrophils 6.9 thou/uL (1.40-6.50); %Basophils 0.1 % (0.0-1.0); %Monocytes 8.4 % (0.0-10.0); %Neutrophils 72.1 % (42.0-75.0); Hemoglobin 12.4 g/dL (12.0-16.0); Mean Corpuscular HGB CONC 32.2 g/dL (32.0-36.0); Mean Corpuscular Hemoglobin 29.2 pg (27.0-31.0); Mean Corpuscular Volume 90.6 fl (78.0-98.0); Mean Platelet Volume 9.7 fL (7.4-10.4); Platelet Count 348 10x3/uL (130-400); RBC Distribution Width 13.6 % (11.5-14.5); Red Blood Cell (RBC) Count 4.25 mill/uL (4.20-5.40); White Blood Cell (WBC) Count 9.6 10x3/uL (4.8-10.8)
[2023-01-13 18:14] LABS: ALT (SGPT) 11 U/L (8-55); AST (SGOT) 14 U/L (5-34); Albumin 3.9 g/dL (3.5-5.0); Alkaline Phosphatase 73 U/L (40-110); Anion Gap 8 mmol/L (10-20); BUN (Urea Nitrogen) 11 mg/dL (9.8-20.1); Bilirubin, Total 0.3 mg/dL (0.2-1.2); Calc. Creatinine Clearance 0 mL/min (70-130); Calcium 9.5 mg/dL (7.8-10.44); Carbon Dioxide 25 mmol/L (22-29); Chloride 107 mmol/L (98-107); Estimated GFR 68; Globulin 3.5 g/dL (2.4-3.5); Glucose 87 mg/dL (70-105); Potassium 3.7 mmol/L (3.5-5.1); Protein, Total 7.4 g/dL (6.0-8.3); Sodium 136 mmol/L (136-145)
== END 2023-01-13 18:34 | disposition home or self-care (01) ==
LOC: ERS 16:49
DX: R60.0 Localized edema (principal); E66.9 Obesity, unspecified; K21.9 Gastro-esophageal reflux disease without esophagitis; J45.909 Unspecified asthma, uncomplicated; Z79.899 Other long term (current) drug therapy
CPT/HCPCS: 36415; 71045; 80053; 83880; 85025

== ENCOUNTER 2024-03-25 12:45 | Inpatient (IN) | payer OTHER ==
[2024-03-25 13:28] LABS: #Basophils 0.04 10x3/uL (0.0-0.2); #Eosinophils Less than 0.03 10x3/uL (0.0-0.7); %Basophils 0.2 % (0.0-1.0); %Lymphocytes 3.5 % (21.0-51.0); %Monocytes 2.9 % (0.0-10.0); Hematocrit 40.1 % (36.0-47.0); Hemoglobin 13.5 g/dL (12.0-16.0); Mean Corpuscular HGB CONC 33.7 g/dL (32.0-36.0); Mean Corpuscular Hemoglobin 29.5 pg (27.0-31.0); Mean Corpuscular Volume 87.6 fL (78.0-98.0); Mean Platelet Volume 9.5 fL (7.4-10.4); Platelet Count 318 10x3/uL (130-400); RBC Distribution Width 13.9 % (11.5-14.5); Red Blood Cell (RBC) Count 4.58 mill/uL (4.20-5.40)
[2024-03-25] MEDS ORDERED: Ondansetron PF 4 MG/2 ML Vial ONE (13:29)
[2024-03-25 13:43] LABS: INR-International Normal Ratio 1.1; PTT 23.1 sec (22.9-36.1); Prothrombin Time 13.8 sec (12.0-14.7)
[2024-03-25 13:45] LABS: D-Dimer Test 0.49 mcg/mL (0.27-0.43)
[2024-03-25 13:53] LABS: ALT (SGPT) 13 U/L (8-55); AST (SGOT) 14 U/L (5-34); Albumin 3.8 g/dL (3.5-5.0); Alkaline Phosphatase 76 U/L (40-110); Anion Gap 16 mmol/L (10-20); BUN (Urea Nitrogen) 14 mg/dL (9.8-20.1); Bilirubin, Total 0.6 mg/dL (0.2-1.2); Calc. Creatinine Clearance 0 mL/min (70-130); Calcium 9.7 mg/dL (7.8-10.44); Carbon Dioxide 20 mmol/L (22-29); Chloride 102 mmol/L (98-107); Estimated GFR 64; Globulin 4.3 g/dL (2.4-3.5); Glucose 113 mg/dL (70-105); Magnesium 1.8 mg/dL (1.6-2.6); Protein, Total 8.1 g/dL (6.0-8.3); Sodium 134 mmol/L (136-145)
[2024-03-25 13:54] LABS: Troponin I Less than 0.010 ng/mL (< 0.028)
[2024-03-25] MEDS ORDERED: methylPREDNISolone Sod Succ/PF 125 MG/2 ML VIAL ONE (14:44)
[2024-03-25] MEDS ORDERED: Azithromycin 500 MG VIAL ONE (14:44)
[2024-03-25] MEDS ORDERED: cefTRIAXone (ROCEPHIN) 2 GM VIAL ONE (14:44)
[2024-03-25] MEDS ORDERED: Sodium Chloride 0.9% 100 ML ONE (14:44)
[2024-03-25] MEDS ORDERED: Ipratropium Bromide 2.5 ml Neb ONE (14:45)
[2024-03-25] MEDS ORDERED: Albuterol 2.5 MG (3 mL) NEB ONE (14:45)
[2024-03-25] MEDS ORDERED: Senokot S 8.6-50 MG TAB PO PRN (15:10)
[2024-03-25] MEDS ORDERED: Calcium Carbonate 500 MG ChewTAB PO PRN (15:10)
[2024-03-25] MEDS ORDERED: Ondansetron ODT 4 MG TAB PO PRN (15:10)
[2024-03-25] MEDS ORDERED: Benzonatate 100 MG CAP PO PRN (15:13)
[2024-03-25 17:28] VITALS: BMI 44.1
[2024-03-25] MEDS: Lactated Ringer's 1,000 ML IV SCH (17:51)
[2024-03-25] MEDS: Acetaminophen 325 MG TAB PO PRN (17:51)
[2024-03-25] MEDS: Ferrous Sulfate 325 MG TAB PO SCH (17:52)
[2024-03-25] MEDS: risperiDONE 1 MG TAB PO SCH (21:05)
[2024-03-25] MEDS: Gabapentin 300 MG CAP PO SCH (21:05)
[2024-03-25] MEDS: Doxycycline 100 MG in Sodium Chloride 0.9% 100 ML IVPB SCH (21:06)
[2024-03-25] MEDS: methylPREDNISolone Sod Succ 40 MG VIAL IVP SCH (21:06)
[2024-03-25] MEDS: Ipratropium/Albuterol 3 ML NEB NEB PRN (21:17)
[2024-03-25] MEDS: Ondansetron PF 4 MG/2 ML Vial IVP PRN (22:07)
[2024-03-25 22:36] LABS: Bacteria/HPF None Seen HPF (None Seen); Bilirubin Negative (Negative); Blood, Urine Negative (Negative); CAUTI Indications for Culture Fever or rigors; Clarity Clear (Clear); Glucose, Urine (Dipstick) Normal (Negative); Ketone, Urine Negative (Negative); Leukocyte Negative Leu/uL (Negative); Nitrite Negative (Negative); Protein, Urine (Dipstick) Negative (Neg-Trace); RBC/HPF 0-3 HPF (0-3); Specific Gravity, Urine 1.008 (1.002-1.036); Squamous Epithelial 0-3 HPF (0-3); Urobilinogen Normal mg/dL (Less than 2); WBC/HPF 0-3 HPF (0-3)
[2024-03-25 22:38] LABS: Urine Culture Reflex No No
[2024-03-26 05:49] LABS: #Basophils 0.03 10x3/uL (0.0-0.2); #Eosinophils Less than 0.03 10x3/uL (0.0-0.7); %Basophils 0.1 % (0.0-1.0); %Lymphocytes 3.4 % (21.0-51.0); %Neutrophils 94.9 % (42.0-75.0); Hematocrit 39.5 % (36.0-47.0); Hemoglobin 12.2 g/dL (12.0-16.0); Mean Corpuscular HGB CONC 30.9 g/dL (32.0-36.0); Mean Corpuscular Hemoglobin 29.1 pg (27.0-31.0); Mean Corpuscular Volume 94.3 fL (78.0-98.0); Mean Platelet Volume 9.6 fL (7.4-10.4); Platelet Count 299 10x3/uL (130-400); RBC Distribution Width 14.3 % (11.5-14.5); Red Blood Cell (RBC) Count 4.19 mill/uL (4.20-5.40)
[2024-03-26 06:48] LABS: ALT (SGPT) 13 U/L (8-55); AST (SGOT) 19 U/L (5-34); Albumin 3.3 g/dL (3.5-5.0); Alkaline Phosphatase 62 U/L (40-110); Anion Gap 17 mmol/L (10-20); BUN (Urea Nitrogen) 19 mg/dL (9.8-20.1); Bilirubin, Total 0.3 mg/dL (0.2-1.2); Calc. Creatinine Clearance 97 mL/min (70-130); Calcium 9.5 mg/dL (7.8-10.44); Carbon Dioxide 18 mmol/L (22-29); Chloride 104 mmol/L (98-107); Estimated GFR 51; Globulin 4.3 g/dL (2.4-3.5); Glucose 141 mg/dL (70-105); Potassium 4.7 mmol/L (3.5-5.1); Protein, Total 7.6 g/dL (6.0-8.3); Sodium 134 mmol/L (136-145)
[2024-03-26] MEDS: Enoxaparin 40 MG (0.4 mL) SYRINGE SC SCH (08:31)
[2024-03-26] MEDS: Atorvastatin Calcium 20 MG TAB PO SCH (08:32)
[2024-03-26] MEDS: DULoxetine 60 MG CAP PO SCH (08:32)
[2024-03-26] MEDS: Promethazine HCl 12.5 MG in Sodium Chloride 0.9% 50 ML IVPB PRN (14:55)
[2024-03-27 04:25] LABS: #Basophils 0.04 10x3/uL (0.0-0.2); #Eosinophils Less than 0.03 10x3/uL (0.0-0.7); %Basophils 0.2 % (0.0-1.0); %Lymphocytes 4.1 % (21.0-51.0); %Monocytes 2.6 % (0.0-10.0); %Neutrophils 92.4 % (42.0-75.0); Hematocrit 39.7 % (36.0-47.0); Hemoglobin 12.6 g/dL (12.0-16.0); Mean Corpuscular HGB CONC 31.7 g/dL (32.0-36.0); Mean Corpuscular Hemoglobin 29.4 pg (27.0-31.0); Mean Corpuscular Volume 92.5 fL (78.0-98.0); Platelet Count 345 10x3/uL (130-400); RBC Distribution Width 14.4 % (11.5-14.5); Red Blood Cell (RBC) Count 4.29 mill/uL (4.20-5.40)
[2024-03-27 04:38] LABS: Anion Gap 12 mmol/L (10-20); BUN (Urea Nitrogen) 25 mg/dL (9.8-20.1); Calc. Creatinine Clearance 115 mL/min (70-130); Calcium 9.7 mg/dL (7.8-10.44); Carbon Dioxide 24 mmol/L (22-29); Chloride 103 mmol/L (98-107); Estimated GFR 62; Glucose 137 mg/dL (70-105); Potassium 4.9 mmol/L (3.5-5.1); Sodium 134 mmol/L (136-145)
[2024-03-27] MEDS: methylPREDNISolone Sod Succ 40 MG VIAL IVP SCH ×2 (16:36→19:59)
[2024-03-27] MEDS: Doxycycline 100 MG CAP PO SCH (19:59)
[2024-03-28 07:48] VITALS: BP 144/95; TEMP 97.5
== END 2024-03-28 11:04 | disposition home or self-care (01) | DRG 189 ==
LOC: ERS 12:45 → SUATTDRO 12:45 → 2SW 15:09 → OBSVTOIN 03-26 12:39
PROVIDERS: ADMIT Internal Medicine; ATTEND Family Medicine
DX: J96.01 Acute respiratory failure with hypoxia (principal); J45.901 Unspecified asthma with (acute) exacerbation; N17.9 Acute kidney failure, unspecified; E87.1 Hypo-osmolality and hyponatremia; Z68.41 Body mass index [BMI] 40.0-44.9, adult; I10 Essential (primary) hypertension; E78.5 Hyperlipidemia, unspecified; Z79.899 Other long term (current) drug therapy; E66.9 Obesity, unspecified; J20.9 Acute bronchitis, unspecified; K21.9 Gastro-esophageal reflux disease without esophagitis; G43.909 Migraine, unspecified, not intractable, without status migrainosus; F41.9 Anxiety disorder, unspecified; F32.A Depression, unspecified; Z88.8 Allergy status to other drugs, medicaments and biological substances; Z98.51 Tubal ligation status; Z90.710 Acquired absence of both cervix and uterus; Z98.890 Other specified postprocedural states
CPT/HCPCS: 36415; 71045; 80048; 80053; 81001; 83735; 84145; 84484; 85025; 85379; 85610; 85730; 87040; 87070; 87205; 87428; 93005; 94644; 96365; 96366; 96372; 96374; 96375; 96376; G0378; J0456; J0696; J1650; J2405; J2550; J2919; J7120; J7611; J7620; J7644